=== PATIENT | female | born 1940 | race Caucasian/White ===

== ENCOUNTER → 2017-02-06 | Outpatient (CLI) | payer MEDICARE, OTHER ==
[2017-02-06 09:45] LABS: Blood Urea Nitrogen 25 mg/dL (7-17); Non-African American GFR(MDRD) 52 (>60 ml/min/1.73 sqM)
--- NOTE | 2017-02-06 12:44 | CT ---
EXAMINATION TYPE: CT ChestAbdPelvis w con DATE OF EXAM: 02/06/2017 11:08 AM COMPARISON: CT abdomen and pelvis March 08, 2016. HISTORY: Malignant Neoplasm of Endometrium per order. CT DLP: 2033 mGycm. Automated Exposure Control for Dose Reduction was Utilized. CONTRAST: CT scan of the thorax, abdomen and pelvis is performed with IV Contrast, patient injected with 80 mL of Visipaque 320. FINDINGS: LUNGS: Mild apical scarring is present bilaterally. There are persistent strandy opacities bilateral lower lung suggesting atelectasis and/or scarring. Some small nodules in the right lower lung remain present, largest measures 5 x 4 mm on axial image 37 felt grossly unchanged in size and appearance fr om prior study. No new additional nodules are evident bilaterally. No pleural effusion or pneumothora x is seen bilaterally. Tracheobronchial tree is patent. MEDIASTINUM: There are no greater than 1 cm hilar or mediastinal lymph nodes. Prominent bilateral hi lar lymph nodes are present. Prominent paratracheal and subcarinal lymph nodes are seen. No pericar dial effusion is seen. Heart size is upper limits of normal with moderate biatrial and mild to moder ate left ventricular dilatation. There is coronary artery calcification in the LAD and more prominent RCA noted. OTHER: No additional significant abnormality is seen. LIVER/GB: There are persistent 4 to 5 cm cysts in the liver along the falciform ligament, more anteri or slightly more hyperdense than simple fluid. No significant change from prior study is seen. There are additional scattered subcentimeter hypodense lesions throughout the liver that are too small to f urther characterize per presumed benign. PANCREAS: No significant abnormality is seen. SPLEEN: There is 1 cm splenule inferior to the spleen redemonstrated. ADRENALS: No significant abnormality is seen. KIDNEYS:. There are areas of old infarct scattered throughout both kidneys. There are a few simple ap pearing cysts seen bilaterally. There is 5 cm exophytic hyperdense lesion posteriorly lower pole leve l left kidney felt to reflect proteinaceous cyst. Bladder is poorly distended with lobulated irregula r margins and wall thickening. A cystitis is not excluded though this may be product of treatment for known endometrial carcinoma. Some mucosal enhancement left collecting system is present, infectious process at this level also not excluded. BOWEL: Oral contrast reaches the mid transverse colon level. There is no suspicious small or large miesha wel dilatation. Nonabsorbed pills in the sigmoid colon are present. GENITAL ORGANS: Uterus is surgically absent on current study. No suspicious residual pelvic mass or a denopathy is clearly identified. LYMPH NODES: No greater than 1cm abdominal or pelvic lymph nodes are appreciated. Prominent subcentim eter groin lymph nodes bilaterally are redemonstrated. OSSEOUS STRUCTURES: Multilevel spurring in the spine is present. There is disc space narrowing in the mid lumbar spine. OTHER: An infrarenal IVC filter is seen. Some hypodensity left external iliac vein near axial image 1 07 is noted making thrombus not excluded though IVC filter is present. New surgical vertical scar ant erior midline below umbilicus is present. IMPRESSION: 1. Interval hysterectomy. Stable small nodules right lower lobe. No new mass or adenopathy is seen to suggest residual neoplasm or neoplastic recurrence. 2. Possible cystitis with spread of infection to left ureter and collecting system, clinical correlat ion advised.
== END | disposition home or self-care (01) ==
LOC: RADCTMAIN 08:26
PROVIDERS: ATTEND Internal Medicine
DX: R91.1 Solitary pulmonary nodule (principal); C54.1 Malignant neoplasm of endometrium
CPT/HCPCS: 82565; 84520; 71260; 74177; 36415; Q9967

== ENCOUNTER → 2017-03-23 | Outpatient (CLI) | payer MEDICARE, OTHER ==
--- NOTE | 2017-03-24 11:46 | MM ---
Reason for exam: screening (asymptomatic). Last mammogram was performed 6 years and 4 months ago. History: Patient is postmenopausal, has history of other cancer at age 76, and is nulliparous. Family history of breast cancer in mother at age 49 and breast cancer in sister at age 40. Benign excisional biopsy of the right breast. Physical Findings: A clinical breast exam by your physician is recommended on an annual basis and results should be correlated with mammographic findings. MG Screening Mammo w CAD Bilateral CC and MLO view(s) were taken. Prior study comparison: November 26, 2010, bilateral digital screening mammo w/CAD. November 19, 2009, bilateral diagnostic digital mammog. The breast tissue is heterogeneously dense. This may lower the sensitivity of mammography. Benign calcifications. There is chronic nodularity bilaterally. There is no dominant lesion. No significant changes when compared with prior studies. ASSESSMENT: Benign, BI-RAD 2 RECOMMENDATION: Routine screening mammogram of both breasts in 1 year.
== END | disposition home or self-care (01) ==
LOC: RADMAMWWP 13:12
PROVIDERS: ATTEND Obstetrics & Gynecology
DX: Z12.31 Encounter for screening mammogram for malignant neoplasm of breast (principal)

== ENCOUNTER 2017-04-21 08:59 | Day surgery (SDC) | payer MEDICARE, OTHER ==
[2017-04-03 10:40] VITALS: BMI 29.4
[~2017-04-21 08:59] MED LIST: LACTATED RINGERS 1,000 ML IV SCH; LIDOCAINE 1% 20 ML VIAL (10MG/ML) FOR IV START INTRADERMA PRN
[2017-04-21 09:23] VITALS: RESP 16; TEMP 98.5
[2017-04-21 09:48] LABS: Glucose,Whole Blood 81 mg/dL (75-99)
[2017-04-21] MEDS ORDERED: PROPOFOL 10 MG/ML 20 ML VIAL IV ONE (10:27)
[2017-04-21] MEDS ORDERED: LIDOCAINE 1% INJ 10MG/ML (20 ML MDV) ONE (10:27)
--- NOTE | 2017-04-21 10:48 | P.PCN ---
Date of Procedure: 04/21/17 Preoperative Diagnosis: Postoperative Diagnosis: Procedure(s) Performed: BRIEF HISTORY: Patient is a 76-year-old pleasant white female, scheduled for an elective colonoscopy as a part of screening for colorectal neoplasia. PROCEDURE PERFORMED: Colonoscopy with snare polypectomy PREOPERATIVE DIAGNOSIS: Screening for colon cancer. IV sedation per Anesthesia. PROCEDURE: After informed consent was obtained, the patient, was brought into the endoscopy unit. IV sedation was administered by Anesthesia under continuous monitoring. Digital rectal examination was normal. Initially the Olympus CF- 160 flexible video colonoscope was then inserted in the rectum, gradually advanced into the cecum without any difficulty. Careful examination was performed as the scope was gradually being withdrawn. Ileocecal valve and the appendiceal orifice were visualized and appeared normal. Prep was excellent. Mucosa of the cecum, ascending colon, appeared normal. In the transverse colon there was a 7-8 mm polyp that was removed by snare polypectomy. The rest of the transverse colon, descending colon, sigmoid colon, and rectum appeared normal. Retroflexion was performed in the rectum and small internal hemorrhoids were seen. The patient tolerated the procedure well. IMPRESSION: 7-8 mm transverse colon polyp status post snare polypectomy. Small internal hemorrhoids. RECOMMENDATIONS: Findings of this examination were discussed with the patient as well as her family. She was advised to follow with the biopsy results. If the biopsy shows a tubular adenoma she can have a repeat colonoscopy in 5 years. Implants: Indications for Procedure: Operative Findings: Description of Procedure:
[2017-04-21 10:57] VITALS: PULSE 54
[2017-04-21 11:18] VITALS: BP 161/74
== END 2017-04-21 11:36 | disposition home or self-care (01) ==
LOC: ORWHC2ENDO 08:59
PROVIDERS: ATTEND Internal Medicine Gastroenterology
DX: Z12.11 Encounter for screening for malignant neoplasm of colon (principal); D12.3 Benign neoplasm of transverse colon; K64.8 Other hemorrhoids; I10 Essential (primary) hypertension; E11.9 Type 2 diabetes mellitus without complications; N28.9 Disorder of kidney and ureter, unspecified; K21.9 Gastro-esophageal reflux disease without esophagitis; Z79.84 Long term (current) use of oral hypoglycemic drugs; Z79.899 Other long term (current) drug therapy; Z88.6 Allergy status to analgesic agent
CPT/HCPCS: 88305; 45385; J2001; J2704

== ENCOUNTER 2019-04-22 23:43 | Inpatient (IN) | payer MEDICARE, OTHER ==
[2019-04-22] MEDS ORDERED: ONDANSETRON 4 MG/2 ML VIAL IVP STA (23:48)
--- NOTE | 2019-04-22 23:54 | ED ---
Fall HPI - General Stated Complaint: Fall Time Seen by Provider: 04/22/19 23:43 Source: patient, EMS, RN notes reviewed, old records reviewed - History of Present Illness Initial Comments: This is a 78-year-old female who is reaching for something at the [facility] home that she was in when she lost her balance and fell landing on her left hip. She complains of severe 10/10 left hip pain. She is brought in by EMS she was given 50 g of fentanyl with some improvement but she started developing nausea upon arrival. He denies any head neck or back pain a loss of function to her upper or lower extremities but severe pain with any type of movement in the left hip. MD Complaint: fall - Related Data Home Medications Medication Instructions Recorded Confirmed glipiZIDE [Glucotrol] 5 mg PO AC-BID 05/13/16 04/22/19 Acetaminophen Tab [Tylenol] 500 mg PO Q6H PRN 06/22/16 04/22/19 Losartan [Cozaar] 100 mg PO DAILY 04/03/17 04/22/19 Omeprazole [PriLOSEC] 20 mg PO AC-BRKFST 04/03/17 04/22/19 Potassium Chloride [K-Tab ER] 8 meq PO DAILY 04/03/17 04/22/19 Allopurinol [Zyloprim] 100 mg PO BID 04/22/19 04/22/19 Atenolol [Tenormin] 25 mg PO HS 04/22/19 04/22/19 Fenofibrate Nanocrystallized 145 mg PO HS 04/22/19 04/22/19 [Tricor] Furosemide [Lasix] 20 mg PO DAILY 04/22/19 04/22/19 Nystatin 100,000 Unit/gm Powd 1 applic TOPICAL DAILY PRN 04/22/19 04/22/19 [Mycostatin Powder] Promethazine/Dextromethorphan 5 - 10 ml PO Q6H PRN 04/22/19 04/22/19 [Promethazine-Dm Syrup] Sennosides-Docusate Sodium 2 tab PO HS 04/22/19 04/22/19 [Senokot-S] Allergies Allergy/AdvReac Type Severity Reaction Status Date / Time ibuprofen [From Motrin IB] Allergy Unknown Verified 04/22/19 23:51 Review of Systems ROS Statement: Those systems with pertinent positive or pertinent negative responses have been documented in the HPI. ROS Other: All systems not noted in ROS Statement are negative. Past Medical History Past Medical History: Diabetes Mellitus, GERD/Reflux, Hearing Disorder / Deafness, Hypertension, Osteoarthritis (OA), Renal Disease, Thyroid Disorder Additional Past Medical History / Comment(s): acute posthemorrhagic anemia,abnormal uterine and vaginal bleeding, Leiomyoma of uterus, tachycardia, Generalized muscle weakness, Chronic kidney disease stage 2 (mild), History of Any Multi-Drug Resistant Organisms: None Reported Past Surgical History: Appendectomy, Hysterectomy Additional Past Surgical History / Comment(s): fistula L upper arm Past Anesthesia/Blood Transfusion Reactions: No Reported Reaction Past Psychological History: No Psychological Hx Reported General Exam - General Exam Comments Initial Comments: This is a well-developed well-nourished awake alert oriented history female she does demonstrate a [place] Coma Scale of 15 Limitations: physical limitation General appearance: alert, anxious, in distress Head exam: Present: atraumatic, normocephalic, normal inspection Eye exam: Present: normal appearance, PERRL, EOMI. Absent: scleral icterus, conjunctival injection, periorbital swelling ENT exam: Present: mucous membranes moist Neck exam: Present: normal inspection. Absent: tenderness, meningismus, lymphadenopathy Respiratory exam: Present: normal lung sounds bilaterally. Absent: respiratory distress, wheezes, rales, rhonchi, stridor Cardiovascular Exam: Present: normal rhythm, bradycardia, normal heart sounds. Absent: systolic murmur, diastolic murmur, rubs, gallop, clicks GI/Abdominal exam: Present: soft, normal bowel sounds. Absent: distended, tenderness, guarding, rebound, rigid Extremities exam: Present: tenderness (Is palpation over left hip), normal capillary refill. Absent: full ROM, pedal edema, joint swelling, calf tenderness Back exam: Present: normal inspection Neurological exam: Present: alert, oriented X3, CN II-XII intact Psychiatric exam: Present: normal affect, normal mood Skin exam: Present: warm, dry, intact, normal color. Absent: rash Course Vital Signs 04/23/19 00:13 Temperature 97.9 F Pulse Rate 44 L Respiratory 18 Rate Blood Pressure 186/79 O2 Sat by Pulse 95 Oximetry - Reevaluation(s) Reevaluation #1: 04/23/19 01:38 I did discuss case with Dr. Fraire prior to the CAT scan be performed CAT scan was performed and the images were visualized by me there is evidence of a surgical neck fracture. Medical Decision Making - Medical Decision Making The patient will be admitted for evaluation treatment a fractured left hip also bradycardia be evaluated. Clinical clearance be obtained. Patient is seen by visiting physicians. Dr. Mayberry will be consulted - Lab Data Result diagrams: 04/23/19 00:01 04/23/19 00:01 Lab Results 04/23/19 04/23/19 04/23/19 Range/Units 00:01 00:01 00:01 WBC 5.7 (3.8-10.6) k/uL RBC 3.34 L (3.80-5.40) m/uL Hgb 10.5 L (11.4-16.0) gm/dL Hct 33.0 L (34.0-46.0) % MCV 98.8 (80.0-100.0) fL MCH 31.4 (25.0-35.0) pg MCHC 31.7 (31.0-37.0) g/dL RDW 14.5 (11.5-15.5) % Plt Count 263 (150-450) k/uL Neutrophils % 70 % Lymphocytes % 18 % Monocytes % 6 % Eosinophils % 2 % Basophils % 0 % Neutrophils # 4.0 (1.3-7.7) k/uL Lymphocytes # 1.0 (1.0-4.8) k/uL Monocytes # 0.4 (0-1.0) k/uL Eosinophils # 0.1 (0-0.7) k/uL Basophils # 0.0 (0-0.2) k/uL Sodium 139 (137-145) mmol/L Potassium 4.4 (3.5-5.1) mmol/L Chloride 108 H (98-107) mmol/L Carbon Dioxide 20 L (22-30) mmol/L Anion Gap 11 mmol/L BUN 30 H (7-17) mg/dL Creatinine 1.53 H (0.52-1.04) mg/dL Est GFR (CKD-EPI)AfAm 38 (>60 ml/min/1.73 sqM) Est GFR (CKD-EPI)NonAf 33 (>60 ml/min/1.73 sqM) Glucose 98 (74-99) mg/dL Calcium 10.1 (8.4-10.2) mg/dL Total Bilirubin 0.6 (0.2-1.3) mg/dL AST 38 H (14-36) U/L ALT 26 (9-52) U/L Alkaline Phosphatase 43 (38-126) U/L Creatine Kinase 43 (30-135) U/L Troponin I <0.012 (0.000-0.034) ng/mL Total Protein 7.3 (6.3-8.2) g/dL Albumin 4.2 (3.5-5.0) g/dL Lipase 364 H (23-300) U/L - EKG Data -: EKG Interpreted by Me EKG shows normal: sinus rhythm (Says bradycardia of 41. Interval 190 QRS duration 100 QT since QTC 424/349 left exodeviation nonspecific T-wave configuration) - Radiology Data Radiology results: report reviewed (I did review the imaging and report or is evidence of a surgical neck fracture.), image reviewed Disposition Clinical Impression: Fall, Closed left hip fracture, Bradycardia Disposition: ADMITTED IP TO THIS [facility] Condition: Fair Referrals: None,Stated [REFERRING] - 1-2 days
[2019-04-23 00:18] LABS: Basophils % (A) 0 %; Eosinophils # (A) 0.1 k/uL (0-0.7); Eosinophils % (A) 2 %; HGB 10.5 gm/dL (11.4-16.0); Lymphocytes % (A) 18 %; MCH 31.4 pg (25.0-35.0); MCHC 31.7 g/dL (31.0-37.0); MCV 98.8 fL (80.0-100.0); Monocytes # (A) 0.4 k/uL (0-1.0); Monocytes % (A) 6 %; Neutrophils % (A) 70 %; Platelet Count 263 k/uL (150-450); RBC 3.34 m/uL (3.80-5.40); RDW 14.5 % (11.5-15.5); WBC 5.7 k/uL (3.8-10.6)
[2019-04-23 00:28] LABS: Albumin 4.2 g/dL (3.5-5.0); Calcium 10.1 mg/dL (8.4-10.2); Potassium 4.4 mmol/L (3.5-5.1); Total Bilirubin 0.6 mg/dL (0.2-1.3); Total Protein 7.3 g/dL (6.3-8.2)
--- NOTE | 2019-04-23 00:58 | XR ---
EXAM: XR Chest, 1 View CLINICAL HISTORY: ITS.REASON XR Reason: cough TECHNIQUE: Frontal view of the chest. COMPARISON: Compared to CT of 02/06/17. FINDINGS: Lungs/pleural space: Redemonstrated elevation of the left hemidiaphragm. Mild basilar atelectasis. No consolidation or vascular congestion Heart: No cardiomegaly. Mediastinum: Calcified aorta. Bones/joints: Mild degenerative changes. IMPRESSION: No evidence of acute pulmonary disease. Redemonstrated elevation of the left hemidiaphragm.
--- NOTE | 2019-04-23 01:00 | XR ---
EXAM: XR Left Hip With Pelvis When Performed, 2 or 3 Views CLINICAL HISTORY: ITS.REASON XR Reason: Pain TECHNIQUE: Two or three views of the left hip, with pelvis when performed. COMPARISON: No relevant prior studies available. FINDINGS: Bones/joints: The left femoral head neck junction is not well assessed on any of the views. No clear acute fracture line, but if patient is nonweightbearing, would recommend CT scan to further assess. Mild osteopenia Soft tissues: Unremarkable. IMPRESSION: The left femoral head neck junction is not well assessed on any of the views. No clear acute fracture line, but if patient is nonweightbearing, would recommend CT scan to further assess.
[2019-04-23] MEDS ORDERED: SODIUM CHLORIDE 0.9% 1,000 ML IV STA (01:04)
[2019-04-23] MEDS ORDERED: SODIUM CHLORIDE 0.9% 500 ML 500 ML IV STA (01:04)
[2019-04-23] MEDS ORDERED: HYDROmorphone 1 MG/ML 1 ML SYRINGE IVP STA (01:04)
[2019-04-23] MEDS ORDERED: NALOXONE 0.4 MG/ML 1 ML VIAL IV PRN (01:12)
--- NOTE | 2019-04-23 01:58 | CT ---
EXAM: CT Left Lower Extremity Without Intravenous Contrast, Hip CLINICAL HISTORY: : Pain TECHNIQUE: Axial computed tomography images of the left hip without intravenous contrast. CTDI is 0.085, 0.242, 16.2 mGy and DLP is 591.4 mGy-cm. This CT exam was performed using one or more of the following dose reduction techniques: automated exposure control, adjustment of the mA and/or kV according to patient size, and/or use of iterative reconstruction technique. COMPARISON: No relevant prior studies available. FINDINGS: Bones/joints: Acute transcervical fracture of the left proximal femur. No hip dislocation. Soft tissues: Unremarkable. Bladder: A Ferrer catheter is present in the decompressed urinary bladder. Reproductive: The uterus is likely absent. IMPRESSION: Acute transcervical fracture of the left proximal femur.
[2019-04-23 02:11] LABS: Appearance,Urine Cloudy (Clear); Bacteria,Urine Occasional /hpf; Bilirubin,Urine Negative (Negative); Blood,Urine Trace (Negative); Color,Urine Light Yellow; Glucose,Urine (UA) Negative (Negative); Hyaline Casts,Urine 1 /lpf (0-2); Ketones,Urine Negative (Negative); Leukocyte Esterase,Urine Large (Negative); Mucus,Urine Rare /hpf; Nitrite,Urine Negative (Negative); Protein,Urine 1+ (Negative); RBC,Urine 5 /hpf (0-5); Specific Gravity,Urine 1.011 (1.001-1.035); Squamous Epithelial Cell,Urine 1 /hpf (0-4); Urobilinogen,Urine <2.0 mg/dL (<2.0); WBC,Urine 180 /hpf (0-5)
[2019-04-23] MEDS: HYDROmorphone 1 MG/ML 1 ML SYRINGE IVP PRN ×3 (03:07→10:25)
[2019-04-23] MEDS: ONDANSETRON 4 MG/2 ML VIAL IVP PRN (07:51)
[2019-04-23 09:28] LABS: Glucose,Whole Blood 134 mg/dL (75-99)
[2019-04-23] MEDS ORDERED: NYSTATIN 100,000 UNIT/GM POWD 15 GM TOPICAL PRN (09:53)
[2019-04-23] MEDS ORDERED: ACETAMINOPHEN TAB 500 MG TAB PO PRN (09:53)
[2019-04-23] MEDS: ALLOPURINOL 100 MG TAB PO SCH ×2 (10:23→21:18)
[2019-04-23] MEDS: HEPARIN SODIUM,PORCINE 5,000 UNIT/ML 1 ML VIAL SQ SCH ×2 (10:24→21:17)
[2019-04-23] MEDS: PANTOPRAZOLE 40 MG TABLET PO SCH (10:24)
[2019-04-23] MEDS: LOSARTAN 50 MG TAB PO SCH (10:26)
[2019-04-23] MEDS: amLODIPine 5 MG TAB PO SCH (10:26)
--- NOTE | 2019-04-23 11:07 | P.HPOR ---
History of Present Illness H&P Date: 04/23/19 This patient is a 78-year-old female with past medical history of hypertension and diabetes type 2 that presented to [facility] ER last night on 04/22/19 with complaints of left hip pain following a fall. Patient states she lives in a nursing home. She states she was at the nursing home last night, when she believes she lost her balance and fell directly onto the left hip. She states she experienced immediate pain in the left hip, she is unable to stand by herself or with assistance. Therefore, an ambulance was called. X-rays taken of the left hip in the ER did not reveal an obvious fracture, therefore a CT scan of the left hip was obtained. CT scan revealed an acute left transcervical femur fr acture. The patient was admitted under the care of Dr. Fraire for further evaluation and treatment. At the time of my exam, the patient states she only experiences pain in the left hip when she moves. Currently, she states her pain is well controlled. She states she did not injure additional areas of the body when she fell. Patient voices no other complaints. Vital signs stable, mild bradycardia noted. Past Medical History Past Medical History: Diabetes Mellitus, GERD/Reflux, Hearing Disorder / Deafness, Hypertension, Osteoarthritis (OA), Renal Disease, Thyroid Disorder Additional Past Medical History / Comment(s): acute posthemorrhagic anemia,abnormal uterine and vaginal bleeding, Leiomyoma of uterus, tachycardia, Generalized muscle weakness, Chronic kidney disease stage 2 (mild), History of Any Multi-Drug Resistant Organisms: None Reported Past Surgical History: Appendectomy, Hysterectomy Additional Past Surgical History / Comment(s): fistula L upper arm Past Anesthesia/Blood Transfusion Reactions: No Reported Reaction Smoking Status: Former smoker - Past Family History Mother History Unknown: Yes Father History Unknown: Yes Medications and Allergies Home Medications Medication Instructions Recorded Confirmed Type glipiZIDE [Glucotrol] 5 mg PO AC-BID 05/13/16 04/22/19 History Acetaminophen Tab [Tylenol] 500 mg PO Q6H PRN 06/22/16 04/22/19 History Losartan [Cozaar] 100 mg PO DAILY 04/03/17 04/22/19 History Omeprazole [PriLOSEC] 20 mg PO AC-BRKFST 04/03/17 04/22/19 History Potassium Chloride [K-Tab ER] 8 meq PO DAILY 04/03/17 04/22/19 History Allopurinol [Zyloprim] 100 mg PO BID 04/22/19 04/22/19 History Atenolol [Tenormin] 25 mg PO HS 04/22/19 04/22/19 History Fenofibrate Nanocrystallized 145 mg PO HS 04/22/19 04/22/19 History [Tricor] Furosemide [Lasix] 20 mg PO DAILY 04/22/19 04/22/19 History Nystatin 100,000 Unit/gm Powd 1 applic TOPICAL DAILY PRN 04/22/19 04/22/19 History [Mycostatin Powder] Promethazine/Dextromethorphan 5 - 10 ml PO Q6H PRN 04/22/19 04/22/19 History [Promethazine-Dm Syrup] Sennosides-Docusate Sodium 2 tab PO HS 04/22/19 04/22/19 History [Senokot-S] Allergies Allergy/AdvReac Type Severity Reaction Status Date / Time ibuprofen [From Motrin IB] Allergy Unknown Verified 04/23/19 10:21 Physical Examination On examination, the patient is lying in bed in no apparent distress. She is able to easily answer questions and follow commands. Her head appears atraumatic and normocephalic. Her breathing appears nonlabored. On inspection of the left lower extremity, extremity is abducted and externally rotated. There are no open wounds or lacerations of the skin. There is no ecchymosis, erythema, skin discoloration. Sensation is intact to light touch of the left lower extremity. Dorsalis pedis pulse palpable, brisk capillary refill of all toes. Patient has good range of motion of the ankle and toes. Calf is soft and nontender to palpation. Results Left hip CT scan 04/23/19:Acute transcervical femur fracture. - Labs Labs: Abnormal Lab Results - Last 24 Hours (Table) 04/23/19 04/23/19 04/23/19 Range/Units 00:01 00:01 01:30 RBC 3.34 L (3.80-5.40) m/uL Hgb 10.5 L (11.4-16.0) gm/dL Hct 33.0 L (34.0-46.0) % Chloride 108 H (98-107) mmol/L Carbon Dioxide 20 L (22-30) mmol/L BUN 30 H (7-17) mg/dL Creatinine 1.53 H (0.52-1.04) mg/dL AST 38 H (14-36) U/L Lipase 364 H (23-300) U/L Urine Appearance Cloudy H (Clear) Urine Protein 1+ H (Negative) Urine Blood Trace H (Negative) Ur Leukocyte Esterase Large H (Negative) Urine WBC 180 H (0-5) /hpf Urine WBC Clumps Rare H (None) /hpf Urine Bacteria Occasional H (None) /hpf Urine Mucus Rare H (None) /hpf H & H 04/23/19 Range/Units 00:01 Hgb 10.5 L (11.4-16.0) gm/dL Hct 33.0 L (34.0-46.0) % Result Diagrams: 04/23/19 00:01 04/23/19 00:01 Assessment and Plan Assessment: Acute transcervical femur fracture, left. Plan: - The clinical and x-ray findings were discussed with the patient. We will plan for a left hip hemiarthroplasty with Dr. Fraire this afternoon, pending medical clearance and consent. - Strict nonweightbearing on left lower extremity. - Nothing by mouth diet. - Continue pain management. - Internal medicine consulted for medical clearance. Patient discussed with Dr. Fraire.
[2019-04-23 12:09] LABS: Glucose,Whole Blood 166 mg/dL (75-99)
[2019-04-23] MEDS: INSULIN ASPART (NovoLOG) 100 UNIT/ML VIAL SQ SCH ×3 (12:53→21:16)
--- NOTE | 2019-04-23 13:37 | P.CONS ---
History of Present Illness - Reason for Consult Consult date: 04/23/19 Medical management Requesting physician: Chaka Fraire - Chief Complaint Left hip pain - History of Present Illness Consultation: This is a pleasant 78 year patient, as chronic stable medical conditions include diabetes, GERD, hard of hearing, hypertension, or strength redness, chronic kidney disease, hypothyroid. Patient has chronic kidney disease stage II. Lacy ent was leaning over and fell to the left side. Developed pain in the left hip. Difficult to get up. Computed tomography scan did confirm a left femur fracture. Denies any chest pain or shortness of breath. Patient noted to be in sinus bradycardia here with heart rate in the 40s. Patient does take Tenormin. That has been held. Blood pressures been running high. Denies any cardiac history. Review of systems: GEN.: None EYES: None HEENT: Decreased hearing NECK: None RESPIRATORY: None CARDIOVASCULAR: None GASTROINTESTINAL: None GENITOURINARY: None MUSCULOSKELETAL: Pain in the joints patient left LYMPHATICS: None HEMATOLOGICAL: None PSYCHIATRY: None NEUROLOGICAL: None Social history: Does smoke in the past. No alcohol. Resident at [facility] home. Family history: Reviewed, noncontributory to presentation Physical examination: VITAL SIGNS: 97.9, 44, 18, 186/79, 95% room air GENERAL: Average built, sitting up, comfortable. EYES: Pupils equal. Conjunctiva normal. HEENT: External appearance of nose and ears normal, oral cavity grossly normal. NECK: JVD not raised; masses not palpable. HEART: First and second heart sounds are normal; no edema. LUNGS: Respiratory rate normal; clear to auscultation. ABDOMEN: Soft, nontender, liver spleen not palpable, no masses palpable. PSYCH: Answering simple questionsl. NEUROLOGICAL: Cranial nerves grossly intact; no facial asymmetry, power and sensation grossly intact. LYMPHATICS: No lymph nodes palpable in the axilla and neck MUSCULAR skeletal: Evidence of OA in the hands and knees. Limited range of motion of left hip Investigations: White count 5.7 him globin 10.5 potassium 4.4 bun 30 creatinine 1.53 Troponin less than 0.012 EKG tracing personally reviewed by me shows sinus bradycardia CT left hip shows acute transcervical fracture of the left proximal femur Chest x-ray film personally reviewed by me-borderline cardiomegaly, elevation left hemidiaphragm Assessment: -Left femur neck fracture secondary to fall -Diabetes mellitus type 2 on oral hypoglycemic -GERD -Essential hypertension, uncontrolled patient did not have received her antihypertensive -Primary osteoarthritis -Chronic kidney disease stage III likely from nephrosclerosis -Metabolic acidosis from chronic kidney disease -Sinus bradycardia likely from being on beta charlette -Normocytic anemia likely secondary to chronic kidney disease Plan: Patient beta blockers been held. Will add amlodipine. Patient is put on telemetry. Will get a cardiology consultation. Possibly wait for 24 hours to make sure patient heart rate does not drop further and the effect of beta charlette wears off. Also blood pressures running high. Otherwise patient med ically stable to proceed for surgery with moderate risk given her comorbidities. No family members currently present. Thank Dr. Fraire Past Medical History Past Medical History: Diabetes Mellitus, GERD/Reflux, Hearing Disorder / Deafness, Hypertension, Osteoarthritis (OA), Renal Disease, Thyroid Disorder Additional Past Medical History / Comment(s): acute posthemorrhagic anemia,abnormal uterine and vaginal bleeding, Leiomyoma of uterus, tachycardia, Generalized muscle weakness, Chronic kidney disease stage 2 (mild), History of Any Multi-Drug Resistant Organisms: None Reported Past Surgical History: Appendectomy, Hysterectomy Additional Past Surgical History / Comment(s): fistula L upper arm Past Anesthesia/Blood Transfusion Reactions: No Reported Reaction Smoking Status: Former smoker - Past Family History Mother History Unknown: Yes Father History Unknown: Yes Medications and Allergies Home Medications Medication Instructions Recorded Confirmed Type glipiZIDE [Glucotrol] 5 mg PO AC-BID 05/13/16 04/22/19 History Acetaminophen Tab [Tylenol] 500 mg PO Q6H PRN 06/22/16 04/22/19 History Losartan [Cozaar] 100 mg PO DAILY 04/03/17 04/22/19 History Omeprazole [PriLOSEC] 20 mg PO AC-BRKFST 04/03/17 04/22/19 History Potassium Chloride [K-Tab ER] 8 meq PO DAILY 04/03/17 04/22/19 History Allopurinol [Zyloprim] 100 mg PO BID 04/22/19 04/22/19 History Atenolol [Tenormin] 25 mg PO HS 04/22/19 04/22/19 History Fenofibrate Nanocrystallized 145 mg PO HS 04/22/19 04/22/19 History [Tricor] Furosemide [Lasix] 20 mg PO DAILY 04/22/19 04/22/19 History Nystatin 100,000 Unit/gm Powd 1 applic TOPICAL DAILY PRN 04/22/19 04/22/19 History [Mycostatin Powder] Promethazine/Dextromethorphan 5 - 10 ml PO Q6H PRN 04/22/19 04/22/19 History [Promethazine-Dm Syrup] Sennosides-Docusate Sodium 2 tab PO HS 04/22/19 04/22/19 History [Senokot-S] Allergies Allergy/AdvReac Type Severity Reaction Status Date / Time ibuprofen [From Motrin IB] Allergy Unknown Verified 04/23/19 10:21 Physical Exam Vitals: Vital Signs Temp Pulse Pulse Resp BP BP Pulse Ox 04/23/19 08:00 97.9 F 46 L 16 180/72 97 04/23/19 07:29 46 L 16 170/79 97 04/23/19 05:00 43 L 18 125/58 95 04/23/19 04:00 44 L 18 132/61 96 04/23/19 01:39 44 L 16 178/82 95 04/23/19 00:13 97.9 F 44 L 18 186/79 95 Intake and Output 04/22/19 04/23/19 04/23/19 22:59 06:59 14:59 Other: Voiding Method Indwelling Catheter Weight 86.183 kg Results CBC & Chem 7: 04/23/19 00:01 04/23/19 00:01 Labs: Abnormal Lab Results - Last 24 Hours (Table) 04/23/19 04/23/19 04/23/19 Range/Units 00:01 00:01 01:30 RBC 3.34 L (3.80-5.40) m/uL Hgb 10.5 L (11.4-16.0) gm/dL Hct 33.0 L (34.0-46.0) % Chloride 108 H (98-107) mmol/L Carbon Dioxide 20 L (22-30) mmol/L BUN 30 H (7-17) mg/dL Creatinine 1.53 H (0.52-1.04) mg/dL POC Glucose (mg/dL) (75-99) mg/dL AST 38 H (14-36) U/L Lipase 364 H (23-300) U/L Urine Appearance Cloudy H (Clear) Urine Protein 1+ H (Negative) Urine Blood Trace H (Negative) Ur Leukocyte Esterase Large H (Negative) Urine WBC 180 H (0-5) /hpf Urine WBC Clumps Rare H (None) /hpf Urine Bacteria Occasional H (None) /hpf Urine Mucus Rare H (None) /hpf 04/23/19 04/23/19 Range/Units 09:26 11:57 RBC (3.80-5.40) m/uL Hgb (11.4-16.0) gm/dL Hct (34.0-46.0) % Chloride (98-107) mmol/L Carbon Dioxide (22-30) mmol/L BUN (7-17) mg/dL Creatinine (0.52-1.04) mg/dL POC Glucose (mg/dL) 134 H 166 H (75-99) mg/dL AST (14-36) U/L Lipase (23-300) U/L Urine Appearance (Clear) Urine Protein (Negative) Urine Blood (Negative) Ur Leukocyte Esterase (Negative) Urine WBC (0-5) /hpf Urine WBC Clumps (None) /hpf Urine Bacteria (None) /hpf Urine Mucus (None) /hpf
[2019-04-23 14:41] LABS: Magnesium 2.2 mg/dL (1.6-2.3)
--- NOTE | 2019-04-23 14:56 | P.CRDCN ---
History of Present Illness History of present illness: This is a pleasant 78 showed female past medical history significant for hypertension, sick sinus syndrome, dyslipidemia, diabetes mellitus and chronic kidney disease. She follows in the office with Dr. Malave. We have been asked to see her in consultation secondary to bradycardia. She initially presented to the hospital last evening after suffering a fall at home and was found to have an acute transcervical left femur fracture. She has been seen by orthopedic surgery and plans for surgical intervention with a hemiarthroplasty this afternoon. She has seen and examined resting comfortably in bed in no acute distress. Telemetry tracings reveal sinus bradycardia. Heart rate goes as low as 37. At the time of my exam heart rate is in the mid 50s. She denies chest pain, shortness of breath, dizziness or palpitations. 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 She denies having any dizziness or lightheaded associated with her fall. She states she does fall frequently from time to time. EKG on admission reveals sinus bradycardia with a heart rate of 47 with nonspecific T-wave flattening noted. Repeat EKG this afternoon reveals ongoing sinus bradycardia heart rate of 37 with left axis deviation. Chest x-ray is negative for an acute cardiopulmonary process. Laboratory data reviewed, WBC 5.7, hemoglobin 10.5, platelets 263, sodium 139, potassium 4.4, creatinine 1.53 with a GFR of 33, magnesium 2.2, cardiac enzymes negative 1, lipase 364. Current cardiac medications include atenolol 25 mg at bedtime, Lasix 20 mg daily, losartan 100 mg daily, potassium supplementation. Most recent echocardiogram obtained in 2017 reveals preserved LV systolic function with ejection fraction 5% with concentric LVH. At the time of my exam: CONSTITUTIONAL: Denies fever. Denies chills. EYES: Denies blurred vision. Denies vision changes. Denies eye pain. EARS, NOSE, MOUTH & THROAT: Denies headache. Denies sore throat. Denies ear pain. CARDIOVASCULAR: Denies chest pain. Denies shortness of breath. Denies orthopnea. Denies PND. Denies palpitations. RESPIRATORY: Denies cough. GASTROINTESTINAL: Denies abdominal pain. Denies diarrhea. Denies constipation. Denies nausea. Denies vomiting. MUSCULOSKELETAL: Complains of left hip discomfort.. INTEGUMENTARY: Denies pruitis. Denies rash. NEUROLOGIC: Denies numbness. Denies tingling. Denies weakness. PSYCHIATRIC: Denies anxiety. Denies depression. ENDOCRINE: Denies fatigue. Denies weight change. Denies polydipsia. Denies polyurina. GENITOURINARY: Denies burning, hematuria or urgency with micturation. HEMATOLOGIC: Denies history of anemia. Denies bleeding. Blood pressure 180/72 heart rate 46 afebrile maintaining oxygen saturation on nasal cannula GENERAL: This is a 78-year-old female in no apparent distress at the time of my examination. HEENT: Head is atraumatic, normocephalic. Pupils are equal, round. Sclerae anicteric. Conjunctivae are clear. Mucous membranes of the mouth are moist. Neck is supple. There is no jugular venous distention. No carotid bruit is heard. LUNGS: Clear to auscultation no wheezes, rales or rhonchi. No chest wall t enderness is noted on palpation or with deep breathing. HEART: Regular rate and rhythm without murmurs, rubs or gallops. S1 and S2 heard. ABDOMEN: Soft, nontender. Bowel sounds are heard. No organomegaly noted. EXTREMITIES: No evidence of peripheral edema and no calf tenderness noted. VASCULAR: Radial and dorsalis pedis pulses palpated, no evidence of clubbing. NEUROLOGIC: Patient is awake, alert and oriented x3. ASSESSMENT Acute left femur fracture Sinus bradycardia, asymptomatic Hypertension Dyslipidemia Diabetes mellitus Chronic kidney disease PLAN She has a long standing history of asymptomatic bradycardia with intermittent episodes of tachycardia. No indication for pacemaker at this time. Discontinue all beta blockers. Last dose of atenolol was 04/22 prior to arrival. Repeat echocardiogram and Doppler study to assess cardiac structure and function. Initiate on theophylline 200 mg daily to hopefully increase the heart rate. She is a moderate to high risk candidate to undergo surgery secondary to multiple comorbid conditions. We recommend cautious fluids administration and good blood pressure control. We will continue to follow and make recommendations accordingly. Thank you kindly for this consultation. Nurse Practitioner note has been reviewed, I agree with a documented findings and plan of care. Patient was seen and examined. Past Medical History Past Medical History: Diabetes Mellitus, GERD/Reflux, Hearing Disorder / Deafness, Hypertension, Osteoarthritis (OA), Renal Disease, Thyroid Disorder Additional Past Medical History / Comment(s): acute posthemorrhagic anemia,abnormal uterine and vaginal bleeding, Leiomyoma of uterus, tachycardia, Generalized muscle weakness, Chronic kidney disease stage 2 (mild), History of Any Multi-Drug Resistant Organisms: None Reported Past Surgical History: Appendectomy, Hysterectomy Additional Past Surgical History / Comment(s): fistula L upper arm Past Anesthesia/Blood Transfusion Reactions: No Reported Reaction Smoking Status: Former smoker - Past Family History Mother History Unknown: Yes Father History Unknown: Yes Medications and Allergies Home Medications Medication Instructions Recorded Confirmed Type glipiZIDE [Glucotrol] 5 mg PO AC-BID 05/13/16 04/22/19 History Acetaminophen Tab [Tylenol] 500 mg PO Q6H PRN 06/22/16 04/22/19 History Losartan [Cozaar] 100 mg PO DAILY 04/03/17 04/22/19 History Omeprazole [PriLOSEC] 20 mg PO AC-BRKFST 04/03/17 04/22/19 History Potassium Chloride [K-Tab ER] 8 meq PO DAILY 04/03/17 04/22/19 History Allopurinol [Zyloprim] 100 mg PO BID 04/22/19 04/22/19 History Atenolol [Tenormin] 25 mg PO HS 04/22/19 04/22/19 History Fenofibrate Nanocrystallized 145 mg PO HS 04/22/19 04/22/19 History [Tricor] Furosemide [Lasix] 20 mg PO DAILY 04/22/19 04/22/19 History Nystatin 100,000 Unit/gm Powd 1 applic TOPICAL DAILY PRN 04/22/19 04/22/19 History [Mycostatin Powder] Promethazine/Dextromethorphan 5 - 10 ml PO Q6H PRN 04/22/19 04/22/19 History [Promethazine-Dm Syrup] Sennosides-Docusate Sodium 2 tab PO HS 04/22/19 04/22/19 History [Senokot-S] Allergies Allergy/AdvReac Type Severity Reaction Status Date / Time ibuprofen [From Motrin IB] Allergy Unknown Verified 04/23/19 10:21 Physical Exam Vitals: Vital Signs Temp Pulse Pulse Resp BP BP Pulse Ox 04/23/19 08:00 97.9 F 46 L 16 180/72 97 04/23/19 07:29 46 L 16 170/79 97 04/23/19 05:00 43 L 18 125/58 95 04/23/19 04:00 44 L 18 132/61 96 04/23/19 01:39 44 L 16 178/82 95 04/23/19 00:13 97.9 F 44 L 18 186/79 95 Intake and Output 04/22/19 04/23/19 04/23/19 22:59 06:59 14:59 Other: Voiding Method Indwelling Catheter Weight 86.183 kg Results 04/23/19 00:01 04/23/19 00:01 Cardiac Enzymes 04/23/19 04/23/19 Range/Units 00:01 00:01 AST 38 H (14-36) U/L Troponin I <0.012 (0.000-0.034) ng/mL CBC 04/23/19 Range/Units 00:01 WBC 5.7 (3.8-10.6) k/uL RBC 3.34 L (3.80-5.40) m/uL Hgb 10.5 L (11.4-16.0) gm/dL Hct 33.0 L (34.0-46.0) % Plt Count 263 (150-450) k/uL Comprehensive Metabolic Panel 04/23/19 Range/Units 00:01 Sodium 139 (137-145) mmol/L Potassium 4.4 (3.5-5.1) mmol/L Chloride 108 H (98-107) mmol/L Carbon Dioxide 20 L (22-30) mmol/L BUN 30 H (7-17) mg/dL Creatinine 1.53 H (0.52-1.04) mg/dL Glucose 98 (74-99) mg/dL Calcium 10.1 (8.4-10.2) mg/dL AST 38 H (14-36) U/L ALT 26 (9-52) U/L Alkaline Phosphatase 43 (38-126) U/L Total Protein 7.3 (6.3-8.2) g/dL Albumin 4.2 (3.5-5.0) g/dL Current Medications Generic Name Dose Route Start Last Admin Trade Name Freq PRN Reason Stop Dose Admin Acetaminophen 500 mg 04/23/19 09:53 Tylenol Tab PO Q6H PRN MILD Pain Allopurinol 100 mg 04/23/19 10:00 04/23/19 10:23 Zyloprim PO 100 mg BID GINA Administration Amlodipine Besylate 5 mg 04/23/19 10:00 04/23/19 10:26 Norvasc PO 5 mg DAILY GINA Administration Fenofibrate 160 mg 04/23/19 21:00 Lofibra PO HS GINA Heparin Sodium (Porcine) 5,000 unit 04/23/19 09:00 04/23/19 10:24 Heparin SQ Not Given Q12HR GINA Hydromorphone HCl 1 mg 04/23/19 01:12 04/23/19 10:25 Dilaudid IVP 1 mg Q3HR PRN Administration Severe Pain Insulin Aspart 0 unit 04/23/19 12:30 04/23/19 12:53 Novolog SQ Not Given ACHS [facility] Protocol Losartan Potassium 100 mg 04/23/19 10:00 04/23/19 10:26 Cozaar PO 100 mg DAILY GINA Administration Naloxone HCl 0.2 mg 04/23/19 01:12 Narcan IV Q2M PRN Opioid Reversal Nystatin 1 applic 04/23/19 09:53 Mycostatin Powder TOPICAL DAILY PRN UNDER BREAST Ondansetron HCl 4 mg 04/23/19 01:12 04/23/19 07:51 Zofran IVP 4 mg Q8HR PRN Administration Nausea And Vomiting Pantoprazole Sodium 40 mg 04/23/19 10:00 04/23/19 10:24 Protonix PO 40 mg AC-BRKFST GINA Administration Senna/Docusate Sodium 2 each 04/23/19 21:00 Senokot-S PO HS GINA Theophylline 200 mg 04/23/19 14:30 Marcos-24 PO DAILY GINA Intake and Output 04/22/19 04/23/19 04/23/19 22:59 06:59 14:59 Other: Voiding Method Indwelling Catheter Weight 86.183 kg 04/23/19 00:01 04/23/19 00:01
[2019-04-23] MEDS: THEOPHYLLINE 24 HOUR 200 MG CAP.ER.24H PO SCH (15:56)
[2019-04-23 17:16] LABS: Glucose,Whole Blood 122 mg/dL (75-99)
--- NOTE | 2019-04-23 18:24 | ECHOF ---
Referral Reason:rosmery MEASUREMENTS -------- HEIGHT: 172.7 cm WEIGHT: 86.2 kg BP: 180/72 RVIDd: 3.6 cm (< 3.3) IVSd: 0.9 cm (0.6 - 1.1) LVIDd: 4.9 cm (3.9 - 5.3) LVPWd: 1.3 cm (0.6 - 1.1) IVSs: 1.7 cm LVIDs: 2.6 cm LVPWs: 1.9 cm LAESV Index (A-L): 33.89 ml/m Ao Diam: 2.0 cm (2.0 - 3.7) AV Cusp: 1.6 cm (1.5 - 2.6) LA Diam: 4.4 cm (2.7 - 3.8) EPSS: 0.9 cm MV E Jared: 0.71 m/s MV DecT: 295 ms MV A Jared: 0.52 m/s MV E/A Ratio: 1.35 RAP: 5.00 mmHg RVSP: 32.27 mmHg MV EF SLOPE: 112.65 mm/s (70 - 150) MV EXCURSION: 1.85 cm (> 18.000) FINDINGS -------- Resting bradycardia (HR<60bpm). This was a technically difficult study with suboptimal views. The left ventricular size is normal. There is mild concentric left ventricular hypertrophy. Overa ll left ventricular systolic function is normal with, an EF between 55 - 60 %. The diastolic fillin g pattern is normal for the age of the patient. The right ventricle is mildly enlarged. Left atrium is mildly dilated by volume. The right atrial size is normal. Lumason used Interatrial and interventricular septum intact. The aortic valve is trileaflet and appears structurally normal. There is no evidence of aortic regu rgitation. There is no evidence of aortic stenosis. Mild mitral regurgitation is present. Mild tricuspid regurgitation present. There is no evidence of pulmonary hypertension. The right v entricular systolic pressure, as measured by Doppler, is 32.27mmHg. There is no pulmonic regurgitation present. The aortic root size is normal. The inferior vena cava was not well visualized. There is a trivial pericardial effusion present. CONCLUSIONS -------- 1. Resting bradycardia (HR<60bpm). 2. This was a technically difficult study with suboptimal views. 3. The left ventricular size is normal. 4. There is mild concentric left ventricular hypertrophy. 5. Overall left ventricular systolic function is normal with, an EF between 55 - 60 %. 6. The diastolic filling pattern is normal for the age of the patient. 7. The right ventricle is mildly enlarged. 8. Left atrium is mildly dilated by volume. 9. The right atrial size is normal. 10. Lumason used 11. Interatrial and interventricular septum intact. 12. The aortic valve is trileaflet and appears structurally normal. 13. There is no evidence of aortic regurgitation. 14. There is no evidence of aortic stenosis. 15. Mild mitral regurgitation is present. 16. Mild tricuspid regurgitation present. 17. There is no evidence of pulmonary hypertension. 18. The right ventricular systolic pressure, as measured by Doppler, is 32.27mmHg. 19. There is no pulmonic regurgitation present. 20. The aortic root size is normal. 21. The inferior vena cava was not well visualized. 22. There is a trivial pericardial effusion present. CATTYMAN: Opal Shin RDCS
[2019-04-23 21:17] LABS: Glucose,Whole Blood 159 mg/dL (75-99)
[2019-04-23] MEDS: FENOFIBRATE 160 MG TAB PO SCH (21:18)
[2019-04-23] MEDS: SENNOSIDES-DOCUSATE SODIUM 1 EACH TAB PO SCH (21:18)
[2019-04-23] MEDS: HYDROcodone/APAP 7.5-325MG 1 EACH TAB PO PRN (23:56)
[2019-04-24] MEDS: PANTOPRAZOLE 40 MG TABLET PO SCH (06:57)
[2019-04-24] MEDS: HYDROcodone/APAP 7.5-325MG 1 EACH TAB PO PRN ×2 (06:57→14:38)
[2019-04-24 07:09] LABS: Glucose,Whole Blood 99 mg/dL (75-99)
[2019-04-24] MEDS: INSULIN ASPART (NovoLOG) 100 UNIT/ML VIAL SQ SCH ×4 (07:30→20:29)
[2019-04-24] MEDS: ALLOPURINOL 100 MG TAB PO SCH ×2 (08:30→20:24)
[2019-04-24] MEDS: LOSARTAN 50 MG TAB PO SCH (08:30)
[2019-04-24] MEDS: amLODIPine 5 MG TAB PO SCH (08:30)
[2019-04-24] MEDS: THEOPHYLLINE 24 HOUR 200 MG CAP.ER.24H PO SCH (08:30)
[2019-04-24] MEDS: HEPARIN SODIUM,PORCINE 5,000 UNIT/ML 1 ML VIAL SQ SCH ×2 (08:30→20:22)
[2019-04-24] MEDS: ONDANSETRON 4 MG/2 ML VIAL IVP PRN (08:36)
--- NOTE | 2019-04-24 10:31 | P.PN ---
Subjective Progress Note Date: 04/24/19 This patient is a 78-year-old female with past medical history of hypertension and diabetes type 2 that presented to [facility] ER last night on 04/22/19 with complaints of left hip pain following a fall. Patient states she lives in a alf. She states she was at the alf last night, when she believes she lost her balance and fell directly onto the left hip. She states she experienced immediate pain in the left hip, she is unable to stand by herself or with assistance. Therefore, an ambulance was called. X-rays taken of the left hip in the ER did not reveal an obvious fracture, therefore a CT scan of the left hip was obtained. CT scan revealed an acute left transcervical femur fracture. The patient was admitted under the care of Dr. Fraire for further evaluation and treatment. At the time of my exam, the patient states she only experiences pain in the left hip when she moves. Currently, she states her pain is well controlled. She states she did not injure additional areas of the body when she fell. 04/24/19: Patient states her pain is currently well-controlled. She states she experiences left hip pain only when she moves it. She states otherwise she feels well, she denies chest pain, shortness of breath, nausea, vomiting, numbness or tingling of the left lower extremity. She denies any new complaints today. Vital signs stable, bradycardia noted. Objective - Vital Signs Vital signs: Vital Signs Temp 98.6 F 04/24/19 07:00 Pulse 54 L 04/24/19 07:00 Resp 16 04/24/19 07:00 BP 182/71 04/24/19 07:00 Pulse Ox 100 04/24/19 07:00 Intake & Output 04/23/19 04/24/19 04/24/19 18:59 06:59 18:59 Output Total 1000 Balance -1000 Output: Urine 1000 Other: Voiding Method Indwelling Catheter Indwelling Catheter Indwelling Catheter - Exam On examination, the patient is lying in bed in no apparent distress. She is ab le to easily answer questions and follow commands. On inspection of the left lower extremity, extremity is abducted and externally rotated. There are no open wounds or lacerations of the skin. There is no ecchymosis, erythema, skin discoloration. Sensation is intact to light touch of the left lower extremity. The left lower extremity is warm and well-perfused. Dorsalis pedis pulse palpable, brisk capillary refill of all toes. Patient has good range of motion of the left ankle and toes. Calves are soft and nontender to palpation bilaterally. - Labs CBC & Chem 7: 04/23/19 00:01 04/23/19 00:01 Labs: Abnormal Lab Results - Last 24 Hours (Table) 04/23/19 04/23/19 04/23/19 Range/Units 11:57 17:02 21:05 POC Glucose (mg/dL) 166 H 122 H 159 H (75-99) mg/dL Assessment and Plan Assessment: Acute transcervical femur fracture, left. Plan: - The clinical and x-ray findings were discussed with the patient. We will plan for a left hip hemiarthroplasty with Dr. Fraire tomorrow morning, pending medical clearance and consent. - Strict nonweightbearing on left lower extremity. - Nothing by mouth diet at midnight. - Continue pain management. - Internal medicine consulted for medical clearance. Patient discussed with Dr. Fraire.
[2019-04-24 11:36] LABS: Glucose,Whole Blood 251 mg/dL (75-99)
--- NOTE | 2019-04-24 12:43 | P.PN ---
Subjective This is a pleasant 78 showed female past medical history significant for hypertension, sick sinus syndrome, dyslipidemia, diabetes mellitus and chronic kidney disease. She follows in the office with Dr. Malave. We have been asked to see her in consultation secondary to bradycardia. She initially presented to the hospital last evening after suffering a fall at home and was found to have an acute transcervical left femur fracture. She has been seen by orthopedic surgery and plans for surgical intervention with a hemiarthroplasty this afternoon. She has seen and examined resting comfortably in bed in no acute distress. Telemetry tracings reveal sinus bradycardia. Heart rate goes as low as 37. At the time of my exam heart rate is in the mid 50s. She denies chest pain, shortness of breath, dizziness or palpitations. 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 She denies having any dizziness or lightheaded associated with her fall. She states she does fall frequently from time to time. EKG on admission reveals sinus bradycardia with a heart rate of 47 with nons pecific T-wave flattening noted. Repeat EKG this afternoon reveals ongoing sinus bradycardia heart rate of 37 with left axis deviation. Chest x-ray is negative for an acute cardiopulmonary process. Laboratory data reviewed, WBC 5.7, hemoglobin 10.5, platelets 263, sodium 139, potassium 4.4, creatinine 1.53 with a GFR of 33, magnesium 2.2, cardiac enzymes negative 1, lipase 364. Current cardiac medications include atenolol 25 mg at bedtime, Lasix 20 mg daily, losartan 100 mg daily, potassium supplementation. Most recent echocardiogram obtained in 2017 reveals preserved LV systolic function with ejection fraction 5% with concentric LVH. 04/24/2019 Patient is seen and examined resting comfortably in bed eating lunch. She denies symptoms of chest discomfort, shortness of breath, dizziness or palpitations. Blood pressure 182/71 heart rate 54 afebrile maintaining oxygen saturation on nasal cannula. Amlodipine has been admitted for blood pressure control. Surgery scheduled for tomorrow. Echocardiogram obtained reveals preserved LV systolic function with ejection fraction 55-60%. GENERAL: This is a 78-year-old female in no apparent distress at the time of my examination. HEENT: Head is atraumatic, normocephalic. Pupils are equal, round. Sclerae anicteric. Conjunctivae are clear. Mucous membranes of the mouth are moist. Neck is supple. There is no jugular venous distention. No carotid bruit is heard. LUNGS: Clear to auscultation no wheezes, rales or rhonchi. No chest wall tenderness is noted on palpation or with deep breathing. HEART: Regular rate and rhythm with short systolic ejection murmur at the base, no rubs or gallops. S1 and S2 heard. EXTREMITIES: No evidence of peripheral edema and no calf tenderness noted. ASSESSMENT Acute left femur fracture Sinus bradycardia, asymptomatic Hypertension Dyslipidemia Diabetes mellitus Chronic kidney disease PLAN She has a long standing history of asymptomatic bradycardia with intermittent episodes of tachycardia. No indication for pacemaker at this time. Has improved with discontinuation of atenolol. Agree with adding norvasc for blood pressure control. She is a moderate to high risk candidate to undergo surgery secondary to multiple comorbid conditions as well as advanced age. However there is no absolu te contraindications. We recommend cautious fluids administration and good blood pressure control. Nurse Practitioner note has been reviewed, I agree with a documented findings and plan of care. Patient was seen and examined. Objective - Vital Signs Vital signs: Vital Signs Temp 98.6 F 04/24/19 07:00 Pulse 54 L 04/24/19 07:00 Resp 16 04/24/19 07:00 BP 182/71 04/24/19 07:00 Pulse Ox 100 04/24/19 07:00 Intake & Output 04/23/19 04/24/19 04/24/19 18:59 06:59 18:59 Output Total 1000 Balance -1000 Output: Urine 1000 Other: Voiding Method Indwelling Catheter Indwelling Catheter Indwelling Catheter - Labs CBC & Chem 7: 04/23/19 00:01 04/23/19 00:01 Labs: Abnormal Lab Results - Last 24 Hours (Table) 04/23/19 04/23/19 04/24/19 Range/Units 17:02 21:05 11:24 POC Glucose (mg/dL) 122 H 159 H 251 H (75-99) mg/dL
[2019-04-24 17:29] LABS: Glucose,Whole Blood 153 mg/dL (75-99)
[2019-04-24] MEDS ORDERED: amLODIPine 5 MG TAB PO STA (17:48)
--- NOTE | 2019-04-24 17:48 | P.PN ---
Progress Note - Text Progress Note Date: 04/24/19 - Chief Complaint Left hip pain Interval history: This is a pleasant 78 year patient, as chronic stable medical conditions include diabetes, GERD, hard of hearing, hypertension, or strength redness, chronic kidney disease, hypothyroid. Patient has chronic kidney disease stage II. Patient was leaning over and fell to the left side. Developed pain in the left hip. Difficult to get up. Computed tomography scan did confirm a left femur fracture. Denies any chest pain or shortness of breath. Patient noted to be in sinus bradycardia here with heart rate in the 40s. Patient does take Tenormin. That has been held. Blood pressures been running high. Denies any cardiac history. Today-hearted is doing better after atenolol was discontinued. Blood pressure better controlled. Awaiting to go down for surgery. Active Medications Acetaminophen (Tylenol Tab) 500 mg PO Q6H PRN PRN Reason: MILD Pain Last Admin: 04/23/19 21:17 Dose: 500 mg Documented by: Hydrocodone Bitart/Acetaminophen ([place] 7.5-325) 2 each PO Q6H PRN PRN Reason: Severe Pain Last Admin: 04/24/19 14:38 Dose: 2 each Documented by: Hydrocodone Bitart/Acetaminophen ([place] 7.5-325) 1 each PO Q4H PRN PRN Reason: Moderate Pain Last Admin: 04/23/19 23:56 Dose: 1 each Documented by: Allopurinol (Zyloprim) 100 mg PO BID [facility] Last Admin: 04/24/19 08:30 Dose: 100 mg Documented by: Amlodipine Besylate (Norvasc) 5 mg PO DAILY [facility] Last Admin: 04/24/19 08:30 Dose: 5 mg Documented by: Fenofibrate (Lofibra) 160 mg PO HS [facility] Last Admin: 04/23/19 21:18 Dose: 160 mg Documented by: Heparin Sodium (Porcine) (Heparin) 5,000 unit SQ Q12HR [facility] Last Admin: 04/24/19 08:30 Dose: 5,000 unit Documented by: Hydromorphone HCl (Dilaudid) 1 mg IVP Q3HR PRN PRN Reason: Severe Pain Last Admin: 04/23/19 10:25 Dose: 1 mg Documented by: Insulin Aspart (Novolog) [address] [facility]; Protocol Last Admin: 04/24/19 17:40 Dose: 1 unit Documented by: Losartan Potassium (Cozaar) 100 mg PO DAILY [facility] Last Admin: 04/24/19 08:30 Dose: 100 mg Documented by: Naloxone HCl (Narcan) 0.2 mg IV Q2M PRN PRN Reason: Opioid Reversal Nystatin (Mycostatin Powder) 1 applic TOPICAL DAILY PRN PRN Reason: UNDER BREAST Ondansetron HCl (Zofran) 4 mg IVP Q8HR PRN PRN Reason: Nausea And Vomiting Last Admin: 04/24/19 08:36 Dose: 4 mg Documented by: Pantoprazole Sodium (Protonix) 40 mg PO AC-BRKFST [facility] Last Admin: 04/24/19 06:57 Dose: 40 mg Documented by: Senna/Docusate Sodium (Senokot-S) 2 each PO HS [facility] Last Admin: 04/23/19 21:18 Dose: 2 each Documented by: Theophylline (Marcos-24) 200 mg PO DAILY [facility] Last Admin: 04/24/19 08:30 Dose: 200 mg Documented by: Physical examination: VITAL SIGNS: 98.9, 63, 18, 180 bradycardia 3, 96% on 2 L GENERAL: Laying in bed, comfortable. EYES: Pupils equal. Conjunctiva normal. HEENT: External appearance of nose and ears normal, oral cavity grossly normal. NECK: JVD not raised; masses not palpable. HEART: First and second heart sounds are normal; no edema. LUNGS: Respiratory rate normal; clear to auscultation. ABDOMEN: Soft, nontender, liver spleen not palpable, no masses palpable. PSYCH: Answering simple questionsl. MUSCULAR skeletal: Evidence of OA in the hands and knees. Limited range of motion of left hip Investigations: Accu-Cheks noted from today White count 5.7 hemoglobin 10.5 potassium 4.4 bun 30 creatinine 1.53 Troponin less than 0.012 EKG tracing personally reviewed by me shows sinus bradycardia CT left hip shows acute transcervical fracture of the left proximal femur Chest x-ray film personally reviewed by me-borderline cardiomegaly, elevation left hemidiaphragm Assessment: -Left femur neck fracture secondary to fall -Diabetes mellitus type 2 on oral hypoglycemic -GERD -Essential hypertension, uncontrolled -Primary osteoarthritis -Chronic kidney disease stage III likely from nephrosclerosis -Metabolic acidosis from chronic kidney disease -Sinus bradycardia likely from being on beta charlette -Normocytic anemia likely secondary to chronic kidney disease Plan: We'll increase the Norvasc to 5 mg twice a day. Other medications to continue. Thank Dr. Fraire
[2019-04-24] MEDS: FENOFIBRATE 160 MG TAB PO SCH (20:24)
[2019-04-24] MEDS: SENNOSIDES-DOCUSATE SODIUM 1 EACH TAB PO SCH (20:24)
[2019-04-24 20:43] LABS: Glucose,Whole Blood 224 mg/dL (75-99)
[2019-04-25 07:11] LABS: Glucose,Whole Blood 122 mg/dL (75-99)
[2019-04-25] MEDS: INSULIN ASPART (NovoLOG) 100 UNIT/ML VIAL SQ SCH ×4 (08:47→21:19)
[2019-04-25] MEDS: ALLOPURINOL 100 MG TAB PO SCH ×2 (08:48→21:20)
[2019-04-25] MEDS: THEOPHYLLINE 24 HOUR 200 MG CAP.ER.24H PO SCH (08:48)
[2019-04-25] MEDS: HEPARIN SODIUM,PORCINE 5,000 UNIT/ML 1 ML VIAL SQ SCH ×2 (08:48→21:19)
[2019-04-25] MEDS: amLODIPine 10 MG TAB PO SCH (08:48)
[2019-04-25] MEDS: PANTOPRAZOLE 40 MG TABLET PO SCH (08:48)
[2019-04-25] MEDS: LOSARTAN 50 MG TAB PO SCH (08:48)
[2019-04-25] MEDS ORDERED: IV FLUID CONTINUATION 700 ML IV ONE (09:23)
[2019-04-25 10:10] LABS: Glucose,Whole Blood 153 mg/dL (75-99)
[2019-04-25] MEDS ORDERED: MD COMMUNICATION TO PHARMACY 1 EACH MISC PO PRN (10:10)
[2019-04-25] MEDS ORDERED: PHENYLEPHRINE-0.9% NACL SYG 1 MG/10 ML SYRINGE ONE (10:51)
[2019-04-25] MEDS ORDERED: MIDAZOLAM 2 MG/2 ML VIAL ONE (10:51)
[2019-04-25] MEDS ORDERED: KETAMINE 10 MG/ML 20 ML VIAL ONE (10:51)
[2019-04-25] MEDS ORDERED: PROPOFOL 10 MG/ML 20 ML VIAL IV ONE (10:51)
[2019-04-25] MEDS ORDERED: SODIUM CHLORIDE 0.9% 500 ML 500 ML IV ONE (11:30)
[2019-04-25] MEDS ORDERED: hydrOXYzine PAMOATE 25 MG CAP PO PRN (13:10)
--- NOTE | 2019-04-25 13:28 | P.OP ---
Date of Procedure: 04/25/19 Preoperative Diagnosis: 1. Displaced left femoral neck fracture 2. Type 2 diabetes 3. Stage II renal insufficiency 4. Sick sinus syndrome 5. Dyslipidemia 6. Chronic sacral decubitus ulcers Postoperative Diagnosis: Same Procedure(s) Performed: Left cemented hip hemiarthroplasty Anesthesia: JD Surgeon: Chaka Fraire Environmental Lead #1: Evaristo Cabrera Estimated Blood Loss (ml): 50 IV fluids (ml): 500 Pathology: other (Femoral head to pathology) Condition: stable Disposition: PACU Indications for Procedure: The patient is a very pleasant 78-year-old female with multiple medical problems including chronic kidney disease, diabetes, 6 sinus syndrome, decubitus ulcers, and mild dementia who lives in a long-term care facility and sustained a ground- level fall. She was brought to the ER where x-rays and a computed tomography scan showed a displaced femoral neck fracture. I met with the patient preoperatively discuss treatment. My recommendation was to perform a cemented hip hemiarthroplasty. We discussed potential risks and complications of surgery including but not limited to risk of anesthesia, infection, damage to local blood vessels or nerves, intraoperative or postoperative fracture, hip dislocation, limb length discrepancy, DVT, PE, other medical complications, and possibly loss of life. The patient understands due to her multiple medical problems that she is at a higher risk having a complication. Her guardian provided their consent to go forward with surgery. Description of Procedure: The patient was identified in preop holding and the correct left leg was marked with my initials. I reviewed the consent form with the patient and all of her questions were answered. She was then brought back to the operating room. She was positioned on the OR table where a spinal anesthetic was administered. She was then positioned in the lateral decubitus position with the right side down and the affected left hip up. She was secured to the OR table with a Montral frame. Axillary roll was placed. The down leg was padded. The left leg was then prepped and draped in the standard sterile fashion. Prior to starting surgery timeout was performed identifying the correct patient, operative extremity, and procedure. I verified that the patient had received preoperative antibiotics. I began by marking a standard posterolateral approach over the proximal femur. Skin incision with a scalpel and dissection was carried down carefully through subcutaneous tissue with electrocautery. Bleeding vessels were controlled. The IT band was then split longitudinally in line with the femur distally and the muscle fibers of gluteus heber were bluntly spread proximally. There was severe scarring of the undersurface of the IT band to the trochanteric bursa which was elevated. The trochanteric bursa was elevated off the posterior femur. The piriformis and short external rotators were then released off of the femur with electrocautery. The posterior hip capsule was teed. There was a displaced transcervical femoral neck fracture. The head was removed, sized, and sent to pathology. Retractors were placed. A box osteotome was used to gain interest to the proximal canal. A canal finder was then placed. An opening reamer was used taking care to lateralize. I then sequentially broached in 1 mm increments until a 10 mm broach felt stable. A calcar planar was used to bring the femoral neck flush with the broach. I then trialed with a +0 offset 44 mm head which felt unstable. The hip was dislocated and a +4 offset head was then trialed and felt stable. The trial implants were removed. A moist Ray-Antonio sponge was placed in the acetabulum. The proximal femur was irrigated to prepare for cement due to the patient's poor bone quality. A cement restrictor was placed distally. Cement was mixed and final implants were dispensed. After cement was pressurized into the proximal femur the final implant was gently tapped in place taking care to place the implant matching the patient's naknek version. The stem was held in place and allowed to harden. All excess cement was removed. The moist Ray-Antonio was removed from the acetabulum. The Graves t aper and trunnion were cleaned and a final 44 mm +4 head was dispensed and gently tapped into place engaging the Graves taper. The wound was thoroughly irrigated and the hip was reduced. The hip was brought through range of motion and found to be stable. Leg lengths appeared symmetric. The capsule was closed with interrupted 0 Vicryl the piriformis was repaired to the posterior femur using #2 Ethibond and modified Chava-David stitch grasping the tendon. The IT band was then repaired with a running Quill stitch. The deep subcu was reapproximated using 0 Vicryl. The superficial subcu was reapproximated using 2-0 Vicryl. The skin was closed with a running subcuticular Monocryl Quill stitch and was reinforced with Dermabond. A sterile dressing was applied. I verified that all instrument, sponge, and sharp counts were correct. The drapes were gently taken down and a dressing was applied over the patient's pre- existing sacral decubitus ulcer. A hip abduction pillow was placed. The patient was then carefully taken off of the OR table and transferred to a gurney. She was brought to recovery room having tolerated the procedure well. In the recovery room postoperative x-rays showed a cemented hip hemiarthroplasty in place with no acute fractures or sign of dislocation. Evaristo Cabrera PAC was required as a skilled property management assistant for patient positioning, surgical exposure, retraction, placement of implants, closure of wound, and application of dressing. Plan: The patient is going to be readmitted to the floor. She can weight-bear as tolerated on her left leg. She is to follow posterior hip precautions. She will receive 2 doses of postoperative antibiotics. DVT prophylaxis with Lovenox 4 weeks. Internal medicine and cardiology for perioperative medical management. Discharge planning is pending.
[2019-04-25 13:42] LABS: Glucose,Whole Blood 153 mg/dL (75-99)
--- NOTE | 2019-04-25 13:46 | XR ---
EXAMINATION TYPE: XR Hip Limited LT DATE OF EXAM: 04/25/2019 CLINICAL HISTORY: Left hip pain and osteoarthritis. TECHNIQUE: Single AP portable view of left hip is obtained immediately postoperatively. COMPARISON: None. FINDINGS: Metallic hardware from left hip arthroplasty is seen and appears satisfactory in alignment and position. There is evidence of recent surgery with subcutaneous gas noted laterally. IMPRESSION: Metallic hardware from left hip arthroplasty is satisfactory in position.
[2019-04-25] MEDS: ONDANSETRON 4 MG/2 ML VIAL IVP PRN (13:54)
[2019-04-25] MEDS ORDERED: HYDROmorphone 1 MG/ML 1 ML SYRINGE IVP ONE (14:12)
[2019-04-25] MEDS ORDERED: SODIUM CHLORIDE 0.9% 1,000 ML IV ONE (14:15)
[2019-04-25 16:49] LABS: Glucose,Whole Blood 169 mg/dL (75-99)
[2019-04-25 16:51] LABS: Basophils % (A) 0 %; Eosinophils % (A) 0 %; HCT 31.9 % (34.0-46.0); HGB 10.4 gm/dL (11.4-16.0); Lymphocytes # (A) 0.5 k/uL (1.0-4.8); Lymphocytes % (A) 5 %; MCH 33.3 pg (25.0-35.0); MCHC 32.4 g/dL (31.0-37.0); MCV 102.6 fL (80.0-100.0); Macrocytosis Slight; Mean Platelet Volume 8.2; Monocytes # (A) 0.6 k/uL (0-1.0); Monocytes % (A) 6 %; Neutrophils # (A) 8.8 k/uL (1.3-7.7); Neutrophils % (A) 88 %; Platelet Count 191 k/uL (150-450); RBC 3.11 m/uL (3.80-5.40); RDW 14.8 % (11.5-15.5)
[2019-04-25 20:26] LABS: Glucose,Whole Blood 221 mg/dL (75-99)
[2019-04-25] MEDS: FENOFIBRATE 160 MG TAB PO SCH (21:20)
[2019-04-25] MEDS: HYDROcodone/APAP 7.5-325MG 1 EACH TAB PO PRN (21:20)
[2019-04-25] MEDS: SENNOSIDES-DOCUSATE SODIUM 1 EACH TAB PO SCH (21:20)
[2019-04-26] MEDS: HYDROcodone/APAP 7.5-325MG 1 EACH TAB PO PRN ×2 (02:26→13:02)
[2019-04-26] MEDS: ONDANSETRON 4 MG/2 ML VIAL IVP PRN ×2 (02:26→09:26)
[2019-04-26 06:57] LABS: Glucose,Whole Blood 203 mg/dL (75-99)
[2019-04-26 07:44] LABS: Calcium 8.8 mg/dL (8.4-10.2); Magnesium 2.1 mg/dL (1.6-2.3); Potassium 4.1 mmol/L (3.5-5.1)
[2019-04-26] MEDS: HEPARIN SODIUM,PORCINE 5,000 UNIT/ML 1 ML VIAL SQ SCH (07:47)
[2019-04-26] MEDS: INSULIN ASPART (NovoLOG) 100 UNIT/ML VIAL SQ SCH ×2 (07:48→13:02)
[2019-04-26] MEDS: LOSARTAN 50 MG TAB PO SCH (07:48)
[2019-04-26] MEDS: PANTOPRAZOLE 40 MG TABLET PO SCH (07:48)
[2019-04-26] MEDS: ALLOPURINOL 100 MG TAB PO SCH (07:48)
[2019-04-26] MEDS: amLODIPine 10 MG TAB PO SCH (07:48)
[2019-04-26 07:53] VITALS: BP 152/96; PULSE 72; RESP 16; TEMP 99
[2019-04-26 11:59] LABS: Glucose,Whole Blood 167 mg/dL (75-99)
[2019-04-26] MEDS ORDERED: glipiZIDE 5 MG TAB PO SCH (12:00)
[2019-04-26] MEDS ORDERED: METOPROLOL TARTRATE 12.5 MG TAB PO SCH (12:20)
--- NOTE | 2019-04-26 12:22 | P.DS ---
Providers Date of admission: 04/23/19 01:12 Expected date of discharge: 04/26/19 Attending physician: Chaka Fraire Consults: 04/23/19 01:17 Consult Physician Routine Consulting Provider: Des Mayberry Consult Reason/Comments: Medical clearance, bradycardia status post fall, left hip fracture Do you want consulting provider notified?: Yes, Notify in am 04/23/19 12:05 Consult Physician Urgent Consulting Provider: Fatmata Garcia Consult Reason/Comments: maked bradycardia Do you want consulting provider notified?: Yes Primary care physician: Lionel Avelina [facility] Course: This is a 78-year-old female who presented on 04/22/19 after falling and sustaining injury to the left hip. On exam and x-ray in the emergency department she was found to have an acute transcervical femoral neck fracture. The patient was admitted under the care of Dr. Fraire for surgical intervention and care. The patient is taken to surgery for a left hip hemiarthroplasty on 04/25/19. The procedure is performed without complication or sequelae. Labs and vital signs are stable on post-operative day #1. Today is postoperative day #1. The patient is examined bedside. She describes minimal pain in the left hip. She has been up with physical therapy to the chair, with minimal issues or pain. She states she has had a bowel movement since surgery. She notes mild nausea with pain medication administration last night, although this has since resolved. She has been tolerating her diet well. She denies abdominal pain. She denies numbness or tingling of the left lower extremity, chest pain, shortness of breath, vomiting. She has no new complaints or concerns today. Vital signs stable. On examination, the patient is sitting in bed in no apparent distress. She is able to follow commands and answer questions. On inspection of the left hip, there is a clean, dry, intact surgical dressing in place. Abductor pillow in place. Catheter in place. Patient has good motion of her left ankle and toes. The left lower extremity is warm and well-perfused with brisk capillary refill of all toes. Dorsalis pedis pulse palpable. Sensation is intact to light touch of the left lower extremity. The calves are soft and non-tender to palpation bilaterally. The patient is discharged to inpatient rehab pending medical clearance today. [facility] for accurate list of medications. Patient Condition at Discharge: Fair Plan - Discharge Summary New Discharge Prescriptions: New Hydrocodone/Acetaminophen [[place] 5-325] 1 tab PO Q4-6H PRN #40 tab PRN Reason: Pain Enoxaparin Sodium [Lovenox] 30 mg SQ DAILY #28 syringe amLODIPine [Norvasc] 10 mg PO DAILY tab Continue glipiZIDE [Glucotrol] 5 mg PO AC-BID Acetaminophen Tab [Tylenol] 500 mg PO Q6H PRN PRN Reason: Pain Omeprazole [PriLOSEC] 20 mg PO AC-BRKFST Losartan [Cozaar] 100 mg PO DAILY Sennosides-Docusate Sodium [Senokot-S] 2 tab PO HS Fenofibrate Nanocrystallized [Tricor] 145 mg PO HS Allopurinol [Zyloprim] 100 mg PO BID Nystatin 100,000 Unit/gm Powd [Mycostatin Powder] 1 applic TOPICAL DAILY PRN PRN Reason: UNDER BREAST Discontinued Potassium Chloride [K-Tab ER] 8 meq PO DAILY Promethazine/Dextromethorphan [Promethazine-Dm Syrup] 5 - 10 ml PO Q6H PRN PRN Reason: Cough Furosemide [Lasix] 20 mg PO DAILY Atenolol [Tenormin] 25 mg PO HS Discharge Medication List glipiZIDE [Glucotrol] 5 mg PO AC-BID 05/13/16 [History] Acetaminophen Tab [Tylenol] 500 mg PO Q6H PRN 06/22/16 [History] Losartan [Cozaar] 100 mg PO DAILY 04/03/17 [History] Omeprazole [PriLOSEC] 20 mg PO AC-BRKFST 04/03/17 [History] Allopurinol [Zyloprim] 100 mg PO BID 04/22/19 [History] Fenofibrate Nanocrystallized [Tricor] 145 mg PO HS 04/22/19 [History] Nystatin 100,000 Unit/gm Powd [Mycostatin Powder] 1 applic TOPICAL DAILY PRN 04/22/19 [History] Sennosides-Docusate Sodium [Senokot-S] 2 tab PO HS 04/22/19 [History] Enoxaparin Sodium [Lovenox] 30 mg SQ DAILY #28 syringe 04/26/19 [Rx] Hydrocodone/Acetaminophen [[place] 5-325] 1 tab PO Q4-6H PRN #40 tab 04/26/19 [Rx] Metoprolol Tartrate [Lopressor] 12.5 mg PO DAILY #90 tab 04/26/19 [Rx] amLODIPine [Norvasc] 10 mg PO DAILY tab 04/26/19 [Rx] Follow up Appointment(s)/Referral(s): Mary Malave MD [STAFF PHYSICIAN] - 2 Weeks None,Stated [REFERRING] - 1-2 days Chaka Fraire MD [Medical Doctor] - 2 Weeks Activity/Diet/Wound Care/Special Instructions: -Weight bearing as tolerated on your left leg and a walker. Up with assistance. -Continue posterior hip precautions for 6 weeks post-operatively. -Take pain medications as prescribed. Take Colace as a stool softener. Take Lovenox as prescribed to prevent blood clots. - Leave surgical dressing in place for 7-10 days. After dressing is removed, you may shower and get incision. After showering, pat dry with a clean towel and keep incision covered with a bandage or gauze. Do not soak incision in a bath. - Follow-up with Dr. Fraire in the office in two weeks. - Call the office with any questions or concerns, Discharge Disposition: TRANSFER TO SNF/ECF
--- NOTE | 2019-04-26 13:38 | CDI ---
Documentation Clarification Form Date: 04/26/2019 1:16:29 PM From: Julia Barriga RN CCDS Admit Date: 04/23/2019 1:12:00 AM Patient Name: Alyssa Whitaker Visit Number: [id number] Discharge Date: ATTENTION: The Clinical Documentation Specialists (CDI) and [facility] Coding Staff appreciate your assistance in clarifying documentation. Please respond to the clarification below the line at the bottom and electronically sign. The CDI & [facility] Coding staff will review the response and follow-up if needed. Please note: Queries are made part of the Legal Health Record. If you have any questions, please contact the author of this message via ITS. Dr. Chaka Fraire A Sacral Decubitus ulcer was documented in the Procedure Note History/Risk Factors: 78 year old female presents to the ED Via EMS after a fall. Medical History DM, GERD, HTN, OA, CKD II, Clinical Indicators: Location: Left Sacral Wound description: No description given. Treatment: Dressing applied Elements for accurate and compliant documentation of an ulcer: *The location/laterality of the ulcer *Etiology (decubitus/pressure, diabetic, PVD) *Stage I-IV, Unstageable, Suspected Deep Tissue Injury (To the deepest stage) *If the ulcer was present at admission (POA) or occurred after admission In your professional opinion, can you please clarify the diagnosis, location, laterality and whether present on admission (POA): Stage 1 Pressure/Decubitus Ulcer (intact skin, non-blanching redness of local area) Stage 2 Pressure/Decubitus Ulcer (Partial thickness, loss of dermis, pink wound bed) Stage 3 Pressure/Decubitus Ulcer (Full thickness tissue loss) Stage 4 Pressure/Decubitus Ulcer (Full thickness tissue loss with exposed bone, tendon, or muscle. May have slough or eschar present) Unstageable Other condition, please specify Unable to determine Please indicate etiology of pressure ulcer (if known). (Last Revision: June 2017) RALPHD
--- NOTE | 2019-04-26 13:59 | P.PN ---
Subjective This is a pleasant 78 showed female past medical history significant for hypertension, sick sinus syndrome, dyslipidemia, diabetes mellitus and chronic kidney disease. She follows in the office with Dr. Malave. We have been asked to see her in consultation secondary to bradycardia. She initially presented to the hospital last evening after suffering a fall at home and was found to have an acute transcervical left femur fracture. She has been seen by orthopedic surgery and plans for surgical intervention with a hemiarthroplasty this afternoon. She has seen and examined resting comfortably in bed in no acute distress. Telemetry tracings reveal sinus bradycardia. Heart rate goes as low as 37. At the time of my exam heart rate is in the mid 50s. She denies chest pain, shortness of breath, dizziness or palpitations. 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 She denies having any dizziness or lightheaded associated with her fall. She states she does fall frequently from time to time. EKG on admission reveals sinus bradycardia with a heart rate of 47 with nons pecific T-wave flattening noted. Repeat EKG this afternoon reveals ongoing sinus bradycardia heart rate of 37 with left axis deviation. Chest x-ray is negative for an acute cardiopulmonary process. Laboratory data reviewed, WBC 5.7, hemoglobin 10.5, platelets 263, sodium 139, potassium 4.4, creatinine 1.53 with a GFR of 33, magnesium 2.2, cardiac enzymes negative 1, lipase 364. Current cardiac medications include atenolol 25 mg at bedtime, Lasix 20 mg daily, losartan 100 mg daily, potassium supplementation. Most recent echocardiogram obtained in 2017 reveals preserved LV systolic function with ejection fraction 5% with concentric LVH. 04/24/2019 Patient is seen and examined resting comfortably in bed eating lunch. She denies symptoms of chest discomfort, shortness of breath, dizziness or palpitations. Blood pressure 182/71 heart rate 54 afebrile maintaining oxygen saturation on nasal cannula. Amlodipine has been admitted for blood pressure control. Surgery scheduled for tomorrow. Echocardiogram obtained reveals preserved LV systolic function with ejection fraction 55-60%. 04/26/2019 Pt underwent left cemented hemiarthroplasty yesterday with Dr. Fraire. She is seen and examined sitting up in the chair in no acute distress. Plan is for discharge to rehab facility this afternoon. She denies chest pain, shortness of breath, dizziness or palpitations. She has had some brief episodes of SVT. Earlier today in the setting of feeling overly nauseated and dry heaving she went into SVT with heart rate of 160-170. She was asked to bare down and take some deep breaths. This did convert her to a sinus rate. EKG obtained revealed sinus mechanism with left axis deviation. Blood pressure is 152/96. Laboratory data reviewed, sodium 141, potassium 4.1, creatinine 1.28. GENERAL: This is a 78-year-old female in no apparent distress at the time of my examination. HEENT: Head is atraumatic, normocephalic. Pupils are equal, round. Sclerae anicteric. Conjunctivae are clear. Mucous membranes of the mouth are moist. Neck is supple. There is no jugular venous distention. No carotid bruit is heard. LUNGS: Clear to auscultation no wheezes, rales or rhonchi. No chest wall tenderness is noted on palpation or with deep breathing. HEART: Regular rate and rhythm with short systolic ejection murmur at the base, no rubs or gallops. S1 and S2 heard. EXTREMITIES: No evidence of peripheral edema and no calf tenderness noted. ASSESSMENT Acute left femur fracture Sinus bradycardia, asymptomatic Hypertension Dyslipidemia Diabetes mellitus Chronic kidney disease PLAN Use small dose of lopressor to prevent intermittent tachy-arrhythmia. Overall stable from a cardiac perspective. Follow up with Dr. Malave in 2 weeks. Nurse Practitioner note has been reviewed, I agree with a documented findings and plan of care. Patient was seen and examined. Objective - Vital Signs Vital signs: Vital Signs Temp 99.0 F 04/26/19 06:50 Pulse 72 04/26/19 06:50 Resp 16 04/26/19 06:50 BP 152/96 04/26/19 06:50 Pulse Ox 100 04/26/19 06:50 Intake & Output 04/25/19 04/26/19 04/26/19 18:59 06:59 18:59 Intake Total 1540 600 Output Total 550 1100 Balance 990 -500 Intake: IV 1300 Oral 240 600 Output: Urine 500 1100 Estimated Blood Loss 50 Other: Voiding Method Indwelling Catheter Indwelling Catheter Indwelling Catheter - Labs CBC & Chem 7: 04/25/19 16:07 04/26/19 06:51 Labs: Abnormal Lab Results - Last 24 Hours (Table) 04/25/19 04/25/19 04/25/19 Range/Units 16:07 16:47 20:14 RBC 3.11 L (3.80-5.40) m/uL Hgb 10.4 L (11.4-16.0) gm/dL Hct 31.9 L (34.0-46.0) % MCV 102.6 H (80.0-100.0) fL Neutrophils # 8.8 H (1.3-7.7) k/uL Lymphocytes # 0.5 L (1.0-4.8) k/uL Chloride (98-107) mmol/L BUN (7-17) mg/dL Creatinine (0.52-1.04) mg/dL Glucose (74-99) mg/dL POC Glucose (mg/dL) 169 H 221 H (75-99) mg/dL 04/26/19 04/26/19 04/26/19 Range/Units 06:51 06:53 11:57 RBC (3.80-5.40) m/uL Hgb (11.4-16.0) gm/dL Hct (34.0-46.0) % MCV (80.0-100.0) fL Neutrophils # (1.3-7.7) k/uL Lymphocytes # (1.0-4.8) k/uL Chloride 110 H (98-107) mmol/L BUN 18 H (7-17) mg/dL Creatinine 1.28 H (0.52-1.04) mg/dL Glucose 191 H (74-99) mg/dL POC Glucose (mg/dL) 203 H 167 H (75-99) mg/dL
--- NOTE | 2019-04-27 16:58 | P.PN ---
Progress Note - Text Progress Note Date: 04/26/19 - Chief Complaint Left hip pain Interval history: Status post left hip surgery. Doing better. Laying in bed. Pain control. No new issues. Tolerated diet. Breathing stable Review of systems: Was done for constitutional, cardiovascular, GI, pulmonary. Musculoskeletal relevant finding as above Current medications are reviewed from electronic medical record of today state Physical examination: VITAL SIGNS: 99, 72, 16, 1 52 x 96, 100% on 2 L GENERAL: Laying in bed, comfortable. EYES: Pupils equal. Conjunctiva normal. HEENT: External appearance of nose and ears normal, oral cavity grossly normal. NECK: JVD not raised; masses not palpable. HEART: First and second heart sounds are normal; no edema. LUNGS: Respiratory rate normal; clear to auscultation. ABDOMEN: Soft, nontender, liver spleen not palpable, no masses palpable. PSYCH: Answering simple questionsl. MUSCULAR skeletal: Evidence of OA in the hands and knees. Limited range of motion of left hip Investigations: Potassium 4.1 bun 18 creatinine 1.28 Hemoglobin 10.4 Troponin less than 0.012 EKG tracing personally reviewed by me shows sinus bradycardia CT left hip shows acute transcervical fracture of the left proximal femur Chest x-ray film personally reviewed by me-borderline cardiomegaly, elevation left hemidiaphragm Assessment: -Left femur neck fracture secondary to fall followed by hemiarthroplasty -Diabetes mellitus type 2 on oral hypoglycemic -GERD -Essential hypertension, uncontrolled -Primary osteoarthritis -Chronic kidney disease stage III likely from nephrosclerosis -Metabolic acidosis from chronic kidney disease -Sinus bradycardia likely from being on beta charlette -Normocytic anemia likely secondary to chronic kidney disease Plan: Stable. Continue current medications for plan. Thank
== END 2019-04-26 15:15 | DRG 470 ==
LOC: EC 23:43 → 4SSUR 04-23 01:12
PROVIDERS: ADMIT Orthopaedic Surgery; ATTEND Orthopaedic Surgery
PROC: 0SRS0J9 Replacement of Left Hip Joint, Femoral Surface with Synthetic Substitute, Cemented, Open Approach (ICD-10-PCS; principal; 2019-04-23)
DX: S72.032A Displaced midcervical fracture of left femur, initial encounter for closed fracture (principal); E87.2 Acidosis; I47.1 Supraventricular tachycardia; W19.XXXA Unspecified fall, initial encounter; K21.9 Gastro-esophageal reflux disease without esophagitis; H91.90 Unspecified hearing loss, unspecified ear; I12.9 Hypertensive chronic kidney disease with stage 1 through stage 4 chronic kidney disease, or unspecified chronic kidney disease; E11.22 Type 2 diabetes mellitus with diabetic chronic kidney disease; I49.5 Sick sinus syndrome; M10.9 Gout, unspecified; N18.3 Chronic kidney disease, stage 3 (moderate); L89.159 Pressure ulcer of sacral region, unspecified stage; D63.1 Anemia in chronic kidney disease; M19.91 Primary osteoarthritis, unspecified site; E78.5 Hyperlipidemia, unspecified; R29.6 Repeated falls; F03.90 Unspecified dementia, unspecified severity, without behavioral disturbance, psychotic disturbance, mood disturbance, and anxiety; E03.9 Hypothyroidism, unspecified; W01.0XXA Fall on same level from slipping, tripping and stumbling without subsequent striking against object, initial encounter; Z90.49 Acquired absence of other specified parts of digestive tract; Y92.009 Unspecified place in unspecified non-institutional (private) residence as the place of occurrence of the external cause; Z79.84 Long term (current) use of oral hypoglycemic drugs; Z79.899 Other long term (current) drug therapy; Z90.710 Acquired absence of both cervix and uterus; Z88.6 Allergy status to analgesic agent; Z87.891 Personal history of nicotine dependence
CPT/HCPCS: 36415; 71045; 73501; 73502; 80048; 80053; 81001; 82550; 83690; 83735; 84443; 84484; 85025; 86850; 86900; 86901; 93005; 93306; 96361; 96374; 96375; 96376; 99285

== ENCOUNTER 2019-05-07 10:21 | Inpatient (IN) | payer MEDICARE, OTHER ==
[2019-05-07] MEDS ORDERED: SODIUM CHLORIDE 0.9% 1,000 ML IV STA ×2 (10:42)
[2019-05-07] MEDS ORDERED: PANTOPRAZOLE 40 MG/10 ML VIAL IVP STA (10:42)
--- NOTE | 2019-05-07 10:55 | ED ---
General Adult HPI - General Source: patient, EMS, RN notes reviewed Mode of arrival: EMS Limitations: no limitations <Uli Daniel - Last Filed: 05/07/19 13:43> <Wyatt Ramirez - Last Filed: 05/07/19 13:49> - General Chief complaint: GI Bleed Stated complaint: GI Bleed Time Seen by Provider: 05/07/19 10:23 - History of Present Illness Initial comments: This a 78-year-old female [facility] weakness, possible GI bleed. Patient has been more lethargic than usual, has been having severe diarrhea and vomiting. They do report that seemed to be dark in nature. Patient is currently on Lovenox secondary to recent hip fracture. herself has no complaints at all information is very limited. She does deny chest pain, shortness breath, headache. Patient denies any current nausea. (Uli Daniel) - Related Data Home Medications Medication Instructions Recorded Confirmed glipiZIDE [Glucotrol] 5 mg PO AC-BID 05/13/16 05/07/19 Acetaminophen Tab [Tylenol] 500 mg PO Q6H PRN 06/22/16 05/07/19 Losartan [Cozaar] 100 mg PO DAILY 04/03/17 05/07/19 Omeprazole [PriLOSEC] 20 mg PO AC-BRKFST 04/03/17 05/07/19 Allopurinol [Zyloprim] 100 mg PO BID 04/22/19 05/07/19 Fenofibrate Nanocrystallized 145 mg PO HS 04/22/19 05/07/19 [Tricor] Nystatin 100,000 Unit/gm Powd 1 applic TOPICAL DAILY PRN 04/22/19 05/07/19 [Mycostatin Powder] Sennosides-Docusate Sodium 2 tab PO HS 04/22/19 05/07/19 [Senokot-S] Hydrocodone/Acetaminophen [[place] 1 tab PO Q4H PRN 05/07/19 05/07/19 5-325] Previous Rx's Medication Instructions Recorded Enoxaparin Sodium [Lovenox] 30 mg SQ DAILY #28 syringe 04/26/19 Metoprolol Tartrate [Lopressor] 12.5 mg PO DAILY #90 tab 04/26/19 amLODIPine [Norvasc] 10 mg PO DAILY tab 04/26/19 Allergies Allergy/AdvReac Type Severity Reaction Status Date / Time ibuprofen [From Motrin IB] Allergy Unknown Verified 05/07/19 10:51 Review of Systems ROS Other: All systems not noted in ROS Statement are negative. <Uli Daniel - Last Filed: 05/07/19 13:43> ROS Other: All systems not noted in ROS Statement are negative. <Wyatt Ramirez - Last Filed: 05/07/19 13:49> ROS Statement: Those systems with pertinent positive or pertinent negative responses have been documented in the HPI. Past Medical History Past Medical History: Diabetes Mellitus, GERD/Reflux, Hearing Disorder / Deafness, Hypertension, Osteoarthritis (OA), Renal Disease, Thyroid Disorder Additional Past Medical History / Comment(s): acute posthemorrhagic anemia,abno rmal uterine and vaginal bleeding, Leiomyoma of uterus, tachycardia, Generalized muscle weakness, Chronic kidney disease stage 2 (mild), History of Any Multi-Drug Resistant Organisms: None Reported Past Surgical History: Appendectomy, Hysterectomy Additional Past Surgical History / Comment(s): fistula L upper arm Past Anesthesia/Blood Transfusion Reactions: No Reported Reaction Past Psychological History: No Psychological Hx Reported Smoking Status: Former smoker - Past Family History Mother History Unknown: Yes Father History Unknown: Yes <Uli Daniel - Last Filed: 05/07/19 13:43> General Exam Limitations: no limitations General appearance: alert, in no apparent distress Head exam: Present: atraumatic, normocephalic, normal inspection ENT exam: Present: mucous membranes dry Neck exam: Present: normal inspection, full ROM. Absent: tenderness, meningismus, lymphadenopathy Respiratory exam: Present: normal lung sounds bilaterally. Absent: respiratory distress, wheezes, rales, rhonchi, stridor Cardiovascular Exam: Present: regular rate, normal rhythm, normal heart sounds. Absent: systolic murmur, diastolic murmur, rubs, gallop, clicks GI/Abdominal exam: Present: soft, normal bowel sounds. Absent: distended, tenderness, guarding, rebound, rigid Neurological exam: Present: alert. Absent: oriented X3 Skin exam: Present: warm, dry, intact, normal color. Absent: rash <Uli Daniel - Last Filed: 05/07/19 13:43> Course Vital Signs 05/07/19 05/07/1905/07/19 10:22 11:11 12:55 Temperature 97.9 F Pulse Rate 84 92 93 Respiratory 22 22 20 Rate Blood Pressure 129/71 132/72 131/80 O2 Sat by Pulse 98 97 99 Oximetry EKG Findings - EKG Comments: EKG Findings:: EKG performed at 10:29 normal sinus rhythm rate of 87 MS 156/76 QT status QTC 362/435 <Uli Daniel - Last Filed: 05/07/19 13:43> Medical Decision Making - Lab Data Result diagrams: 05/07/19 11:00 05/07/19 11:00 <Uli Daniel - Last Filed: 05/07/19 13:43> - Lab Data Result diagrams: 05/07/19 11:00 05/07/19 11:00 <Wyatt Ramirez - Last Filed: 05/07/19 13:49> - Medical Decision Making 78-year-old female presented for lethargy, possible GI bleed. Patient's phone to have acute kidney injury, dehydration, lethargic. Patient will be admitted for GI bleed, dehydration with IV hydration, elevated troponin with trending troponin is no acute EKG changes. (Uli Daniel) Case discussed with practitioner Uli. Patient was reexamined and reevaluated by myself, Dr. Ramirez. Patient resting comfortably in bed. I do agree with PA findings. This includes diagnostic interpretation and treatment plan. Case was discussed in detail with Dr. Mills, covering for Dr. Mayberry, who admits for Dr. Teresa, who will admit. (Wyatt Ramirez) - Lab Data Lab Results 05/07/19 05/07/19 05/07/19 Range/Units 11:00 11:00 11:00 WBC 12.0 H (3.8-10.6) k/uL RBC 3.26 L (3.80-5.40) m/uL Hgb 10.3 L (11.4-16.0) gm/dL Hct 32.2 L (34.0-46.0) % MCV 98.7 (80.0-100.0) fL MCH 31.7 (25.0-35.0) pg MCHC 32.1 (31.0-37.0) g/dL RDW 15.4 (11.5-15.5) % Plt Count 592 H (150-450) k/uL Neutrophils % (Manual) 87 % Band Neutrophils % 6 % Lymphocytes % (Manual) 2 % Monocytes % (Manual) 5 % Neutrophils # (Manual) 11.10 H (1.3-7.7) k/uL Lymphocytes # (Manual) 0.24 L (1.0-4.8) k/uL Monocytes # (Manual) 0.60 (0-1.0) k/uL Nucleated RBCs 0 (0-0) /100 WBC Manual Slide Review Performed RBC Morphology Normal PT 11.5 (9.0-12.0) sec INR 1.1 (<1.2) APTT 31.4 H (22.0-30.0) sec Sodium 133 L (137-145) mmol/L Potassium 5.4 H (3.5-5.1) mmol/L Chloride 95 L (98-107) mmol/L Carbon Dioxide 22 (22-30) mmol/L Anion Gap 16 mmol/L BUN 84 H (7-17) mg/dL Creatinine 2.68 H (0.52-1.04) mg/dL Est GFR (CKD-EPI)AfAm 19 (>60 ml/min/1.73 sqM) Est GFR (CKD-EPI)NonAf 17 (>60 ml/min/1.73 sqM) Glucose 274 H (74-99) mg/dL Calcium 9.9 (8.4-10.2) mg/dL Magnesium 2.9 H (1.6-2.3) mg/dL Total Bilirubin 1.1 (0.2-1.3) mg/dL AST 30 (14-36) U/L ALT 27 (9-52) U/L Alkaline Phosphatase 170 H (38-126) U/L Troponin I (0.000-0.034) ng/mL Total Protein 6.1 L (6.3-8.2) g/dL Albumin 3.1 L (3.5-5.0) g/dL Lipase 63 (23-300) U/L 05/07/19 Range/Units 11:00 WBC (3.8-10.6) k/uL RBC (3.80-5.40) m/uL Hgb (11.4-16.0) gm/dL Hct (34.0-46.0) % MCV (80.0-100.0) fL MCH (25.0-35.0) pg MCHC (31.0-37.0) g/dL RDW (11.5-15.5) % Plt Count (150-450) k/uL Neutrophils % (Manual) % Band Neutrophils % % Lymphocytes % (Manual) % Monocytes % (Manual) % Neutrophils # (Manual) (1.3-7.7) k/uL Lymphocytes # (Manual) (1.0-4.8) k/uL Monocytes # (Manual) (0-1.0) k/uL Nucleated RBCs (0-0) /100 WBC Manual Slide Review RBC Morphology PT (9.0-12.0) sec INR (<1.2) APTT (22.0-30.0) sec Sodium (137-145) mmol/L Potassium (3.5-5.1) mmol/L Chloride (98-107) mmol/L Carbon Dioxide (22-30) mmol/L Anion Gap mmol/L BUN (7-17) mg/dL Creatinine (0.52-1.04) mg/dL Est GFR (CKD-EPI)AfAm (>60 ml/min/1.73 sqM) Est GFR (CKD-EPI)NonAf (>60 ml/min/1.73 sqM) Glucose (74-99) mg/dL Calcium (8.4-10.2) mg/dL Magnesium (1.6-2.3) mg/dL Total Bilirubin (0.2-1.3) mg/dL AST (14-36) U/L ALT (9-52) U/L Alkaline Phosphatase (38-126) U/L Troponin I 0.072 H* (0.000-0.034) ng/mL Total Protein (6.3-8.2) g/dL Albumin (3.5-5.0) g/dL Lipase (23-300) U/L Disposition <Uli Daniel - Last Filed: 05/07/19 13:43> <Wyatt Ramirez - Last Filed: 05/07/19 13:49> Clinical Impression: Dehydration, Acute kidney injury, GI bleed, Nausea vomiting and diarrhea, Renata vated troponin Disposition: ADMITTED IP TO THIS HOSP Condition: Fair Referrals: Edmar Teresa DO [Primary Care Provider] - 1-2 days
[2019-05-07 11:56] LABS: HCT 32.2 % (34.0-46.0); HGB 10.3 gm/dL (11.4-16.0); MCH 31.7 pg (25.0-35.0); MCHC 32.1 g/dL (31.0-37.0); MCV 98.7 fL (80.0-100.0); Mean Platelet Volume 7.4; Platelet Count 592 k/uL (150-450); RBC 3.26 m/uL (3.80-5.40); RDW 15.4 % (11.5-15.5)
[2019-05-07 12:09] LABS: Albumin 3.1 g/dL (3.5-5.0); Calcium 9.9 mg/dL (8.4-10.2); INR 1.1 (<1.2); Magnesium 2.9 mg/dL (1.6-2.3); Partial Thromboplastin Time 31.4 sec (22.0-30.0); Potassium 5.4 mmol/L (3.5-5.1); Prothrombin Time 11.5 sec (9.0-12.0); Total Bilirubin 1.1 mg/dL (0.2-1.3); Total Protein 6.1 g/dL (6.3-8.2)
[2019-05-07 12:30] LABS: Band Neutrophils % 6 %; Lymphocytes # (M) 0.24 k/uL (1.0-4.8); Neutrophils % (M) 87 %; Nucleated Red Blood Cells 0 /100 WBC (0-0); Total Cells Counted 100
[2019-05-07] MEDS ORDERED: NALOXONE 0.4 MG/ML 1 ML VIAL IV PRN (13:46)
[2019-05-07 13:53] LABS: Bacteria,Urine Many /hpf; Mucus,Urine Rare /hpf; RBC,Urine 25 /hpf (0-5); Squamous Epithelial Cell,Urine 7 /hpf (0-4)
[2019-05-07 13:54] LABS: Appearance,Urine Bloody (Clear); Color,Urine Dark Red
[2019-05-07] MEDS: SODIUM CHLORIDE 0.9% 1,000 ML IV SCH (14:50)
[2019-05-07] MEDS ORDERED: ACETAMINOPHEN TAB 500 MG TAB PO PRN (16:20)
[2019-05-07] MEDS ORDERED: NYSTATIN 100,000 UNIT/GM POWD 15 GM TOPICAL PRN (16:20)
--- NOTE | 2019-05-07 18:34 | P.HPIM ---
History of Present Illness 68-year-old female was sent in here because of weakness possible GI bleed patient is extremely poor historian patient was believed to have dark stools was having diarrhea nausea vomiting. Patient if patient can use to have diarrhea will obtain C. diff testing patient is a poor unable to give much history to me patient did confirm that she did have diarrhea. Patient is on Lovenox a patient had a recent hip fracture. Not sure what her baseline mental status is patient appears to be oriented 2 extremely Drowsy found to be in acute renal failure patient was started on IV fluids no clear evidence of infection although does have leukocytosis elevated lactic acid, patient has a chronic Ferrer catheter because of which are patient urine is a contaminated urine sample all the cultures were obtained as of now will not start her on any antibiotics patient has elevated blood sugars Review of Systems negative except those mentioned above. Past Medical History Past Medical History: Diabetes Mellitus, GERD/Reflux, Hearing Disorder / Deafness, Hypertension, Osteoarthritis (OA), Renal Disease, Thyroid Disorder Additional Past Medical History / Comment(s): acute posthemorrhagic anemia,abnormal uterine and vaginal bleeding, Leiomyoma of uterus, tachycardia, Generalized muscle weakness, Chronic kidney disease stage 2 (mild), History of Any Multi-Drug Resistant Organisms: None Reported Past Surgical History: Appendectomy, Hysterectomy Additional Past Surgical History / Comment(s): fistula L upper arm Past Anesthesia/Blood Transfusion Reactions: No Reported Reaction Smoking Status: Former smoker - Past Family History Mother History Unknown: Yes Father History Unknown: Yes Medications and Allergies Home Medications Medication Instructions Recorded Confirmed Type glipiZIDE [Glucotrol] 5 mg PO AC-BID 05/13/16 05/07/19 History Acetaminophen Tab [Tylenol] 500 mg PO Q6H PRN 06/22/16 05/07/19 History Losartan [Cozaar] 100 mg PO DAILY 04/03/17 05/07/19 History Omeprazole [PriLOSEC] 20 mg PO AC-BRKFST 04/03/17 05/07/19 History Allopurinol [Zyloprim] 100 mg PO BID 04/22/19 05/07/19 History Fenofibrate Nanocrystallized 145 mg PO HS 04/22/19 05/07/19 History [Tricor] Nystatin 100,000 Unit/gm Powd 1 applic TOPICAL DAILY PRN 04/22/19 05/07/19 History [Mycostatin Powder] Sennosides-Docusate Sodium 2 tab PO HS 04/22/19 05/07/19 History [Senokot-S] Enoxaparin Sodium [Lovenox] 30 mg SQ DAILY #28 syringe 04/26/19 05/07/19 Rx Metoprolol Tartrate [Lopressor] 12.5 mg PO DAILY #90 tab 04/26/19 05/07/19 Rx amLODIPine [Norvasc] 10 mg PO DAILY tab 04/26/19 05/07/19 Rx Hydrocodone/Acetaminophen [[place] 1 tab PO Q4H PRN 05/07/19 05/07/19 History 5-325] Allergies Allergy/AdvReac Type Severity Reaction Status Date / Time ibuprofen [From Motrin IB] Allergy Unknown Verified 05/07/19 10:51 Physical Exam Vitals: Vital Signs Temp Pulse Pulse Resp BP BP Pulse Ox 05/07/19 16:00 98.3 F 99 16 143/66 100 05/07/19 14:46 90 22 118/61 98 05/07/19 12:55 93 20 131/80 99 05/07/19 11:11 92 22 132/72 97 05/07/19 10:22 97.9 F 84 22 129/71 98 Intake and Output 05/07/19 05/07/19 05/07/19 06:59 14:59 22:59 Intake Total 240 Balance 240 Intake: Oral 240 Other: Voiding Method Indwelling Catheter Weight 80 kg PHYSICAL EXAMINATION: GENERAL: The patient is alert and oriented x2, lethargic. HEENT: Pupils are round and equally reacting to light. EOMI. No scleral icterus. No conjunctival pallor. Normocephalic, atraumatic. No pharyngeal erythema. No thyromegaly. CARDIOVASCULAR: S1 and S2 present. No murmurs, rubs, or gallops. PULMONARY: Chest is clear to auscultation, no wheezing or crackles. ABDOMEN: Soft, nontender, nondistended, normoactive bowel sounds. No palpable organomegaly. MUSCULOSKELETAL: No joint swelling or deformity. EXTREMITIES: No cyanosis, clubbing, or pedal edema. NEUROLOGICAL: unable to completely assess does not appear to have any focal deficits SKIN: No rashes. Results CBC & Chem 7: 05/07/19 11:00 05/07/19 11:00 Labs: Abnormal Lab Results - Last 24 Hours (Table) 05/07/19 05/07/19 05/07/19 Range/Units 11:00 11:00 11:00 WBC 12.0 H (3.8-10.6) k/uL RBC 3.26 L (3.80-5.40) m/uL Hgb 10.3 L (11.4-16.0) gm/dL Hct 32.2 L (34.0-46.0) % Plt Count 592 H (150-450) k/uL Neutrophils # (Manual) 11.10 H (1.3-7.7) k/uL Lymphocytes # (Manual) 0.24 L (1.0-4.8) k/uL APTT 31.4 H (22.0-30.0) sec Sodium 133 L (137-145) mmol/L Potassium 5.4 H (3.5-5.1) mmol/L Chloride 95 L (98-107) mmol/L BUN 84 H (7-17) mg/dL Creatinine 2.68 H (0.52-1.04) mg/dL Glucose 274 H (74-99) mg/dL Plasma Lactic Acid Will (0.7-2.0) mmol/L Magnesium 2.9 H (1.6-2.3) mg/dL Alkaline Phosphatase 170 H (38-126) U/L Troponin I (0.000-0.034) ng/mL Total Protein 6.1 L (6.3-8.2) g/dL Albumin 3.1 L (3.5-5.0) g/dL Urine Appearance (Clear) Urine RBC (0-5) /hpf Urine WBC (0-5) /hpf Urine WBC Clumps (None) /hpf Ur Squamous Epith Cells (0-4) /hpf Urine Bacteria (None) /hpf Urine Mucus (None) /hpf 05/07/19 05/07/19 05/07/19 Range/Units 11:00 12:50 13:17 WBC (3.8-10.6) k/uL RBC (3.80-5.40) m/uL Hgb (11.4-16.0) gm/dL Hct (34.0-46.0) % Plt Count (150-450) k/uL Neutrophils # (Manual) (1.3-7.7) k/uL Lymphocytes # (Manual) (1.0-4.8) k/uL APTT (22.0-30.0) sec Sodium (137-145) mmol/L Potassium (3.5-5.1) mmol/L Chloride (98-107) mmol/L BUN (7-17) mg/dL Creatinine (0.52-1.04) mg/dL Glucose (74-99) mg/dL Plasma Lactic Acid Will 2.7 H* (0.7-2.0) mmol/L Magnesium (1.6-2.3) mg/dL Alkaline Phosphatase (38-126) U/L Troponin I 0.072 H* (0.000-0.034) ng/mL Total Protein (6.3-8.2) g/dL Albumin (3.5-5.0) g/dL Urine Appearance Bloody H (Clear) Urine RBC 25 H (0-5) /hpf Urine WBC 82 H (0-5) /hpf Urine WBC Clumps Few H (None) /hpf Ur Squamous Epith Cells 7 H (0-4) /hpf Urine Bacteria Many H (None) /hpf Urine Mucus Rare H (None) /hpf 05/07/19 Range/Units 16:44 WBC (3.8-10.6) k/uL RBC (3.80-5.40) m/uL Hgb (11.4-16.0) gm/dL Hct (34.0-46.0) % Plt Count (150-450) k/uL Neutrophils # (Manual) (1.3-7.7) k/uL Lymphocytes # (Manual) (1.0-4.8) k/uL APTT (22.0-30.0) sec Sodium (137-145) mmol/L Potassium (3.5-5.1) mmol/L Chloride (98-107) mmol/L BUN (7-17) mg/dL Creatinine (0.52-1.04) mg/dL Glucose (74-99) mg/dL Plasma Lactic Acid Will (0.7-2.0) mmol/L Magnesium (1.6-2.3) mg/dL Alkaline Phosphatase (38-126) U/L Troponin I 0.058 H* (0.000-0.034) ng/mL Total Protein (6.3-8.2) g/dL Albumin (3.5-5.0) g/dL Urine Appearance (Clear) Urine RBC (0-5) /hpf Urine WBC (0-5) /hpf Urine WBC Clumps (None) /hpf Ur Squamous Epith Cells (0-4) /hpf Urine Bacteria (None) /hpf Urine Mucus (None) /hpf Microbiology - Last 24 Hours (Table) 05/07/19 12:50 Urine Culture - Preliminary Urine,Voided Thrombosis Risk Factor Assmnt - Choose All That Apply Each Factor Represents 1 point: Sepsis (< 1month) Each Risk Factor Represents 3 Points: Age 75 years or older Other congenital or acquired thrombophilia - If yes, enter type in comment: No Each Risk Factor Represents 5 Points: Hip, pelvis, or leg fracture (< 1 month) Thrombosis Risk Factor Assessment Total Risk Factor Score: 9 Thrombosis Risk Factor Assessment Level: High Risk Assessment and Plan Plan: -possible upper GI bleed patient was started on Protonix which will be continued patient does have diarrhea. She can use to have diarrhea we'll obtain C. diff testing -Leukocytosis reactive in nature rather infection -Abnormal urine secondary to Ferrer catheter which was not replaced. My suspicion of UTI is low but if cultures are positive. Couldn't treat her with antibiotics -Severe dehydration -Acute renal failure secondary to prerenal azotemia from dehydration patient will be started on IV fluids -9 hypovolemic hyponatremia expected to improve with IV fluids -Mildly elevated troponin without any chest painand EKG changes secondary to acute renal failure. -Recent hip surgery on Lovenox as due to prophylaxis patient surgery was 3 weeks ago Lovenox will be held because of possibility of GI bleed -altered mental status toxic encephalopathy secondary to dehydration [place]- lactic acidosis secondary to intravascular depletion to be lactic acid tomorrow -Hypothyroidism -Gastroesophageal reflux disease
[2019-05-07] MEDS: PANTOPRAZOLE 40 MG/10 ML VIAL IV SCH (20:15)
[2019-05-07] MEDS: INSULIN ASPART (NovoLOG) 100 UNIT/ML VIAL SQ SCH (21:06)
[2019-05-07 21:23] LABS: Glucose,Whole Blood 150 mg/dL (75-99)
[2019-05-08] MEDS: ONDANSETRON 4 MG/2 ML VIAL IVP PRN ×2 (03:40→22:39)
[2019-05-08] MEDS: SODIUM CHLORIDE 0.9% 1,000 ML IV SCH ×2 (04:01→15:26)
[2019-05-08 06:05] LABS: HCT 28.9 % (34.0-46.0); Hypochromasia Slight; MCH 31.1 pg (25.0-35.0); MCHC 31.1 g/dL (31.0-37.0); MCV 100.1 fL (80.0-100.0); Macrocytosis Slight; Platelet Count 461 k/uL (150-450); RBC 2.89 m/uL (3.80-5.40); RDW 14.7 % (11.5-15.5); WBC 10.4 k/uL (3.8-10.6)
[2019-05-08 06:15] LABS: Calcium 8.6 mg/dL (8.4-10.2)
[2019-05-08] MEDS: INSULIN ASPART (NovoLOG) 100 UNIT/ML VIAL SQ SCH ×4 (06:21→22:20)
[2019-05-08 06:25] LABS: Glucose,Whole Blood 132 mg/dL (75-99)
[2019-05-08] MEDS: amLODIPine 10 MG TAB PO SCH (09:18)
[2019-05-08] MEDS: PANTOPRAZOLE 40 MG/10 ML VIAL IV SCH ×2 (09:18→21:05)
[2019-05-08] MEDS: METOPROLOL TARTRATE 12.5 MG TAB PO SCH (09:18)
--- NOTE | 2019-05-08 10:44 | P.PN ---
Subjective 68-year-old admitted for possibly of upper GI bleed although patient is an have any GI bleed here patient doesn't have any diarrhea today. Patient is being treated for acute renal failure. Patient will be continued on IV fluids. Patient remains lethargic Ferrer catheter was replaced. Leukocytosis improved. review of systems: Unable to obtain All inpatient medications were reviewed and appropriate changes in these medications as dictated in the interval history and assessment and plan. Objective - Vital Signs Vital signs: Vital Signs Temp 98.1 F 05/08/19 08:00 Pulse 87 05/08/19 08:00 Resp 16 05/08/19 08:00 BP 124/61 05/08/19 08:00 Pulse Ox 100 05/08/19 08:00 Intake & Output 05/07/19 05/08/19 05/08/19 18:59 06:59 18:59 Intake Total 240 240 Output Total 800 Balance 240 -800 240 Weight 80 kg 83 kg Intake: Oral 240 240 Output: Urine 800 Other: Voiding Method Indwelling Catheter Indwelling Catheter Indwelling Catheter # Bowel Movements 1 - Exam PHYSICAL EXAMINATION: GENERAL: The patient is alert and oriented x2, lethargic. HEENT: Pupils are round and equally reacting to light. EOMI. No scleral icterus. No conjunctival pallor. Normocephalic, atraumatic. No pharyngeal erythema. No thyromegaly. CARDIOVASCULAR: S1 and S2 present. No murmurs, rubs, or gallops. PULMONARY: Chest is clear to auscultation, no wheezing or crackles. ABDOMEN: Soft, nontender, nondistended, normoactive bowel sounds. No palpable organomegaly. MUSCULOSKELETAL: No joint swelling or deformity. EXTREMITIES: No cyanosis, clubbing, or pedal edema. NEUROLOGICAL: unable to completely assess does not appear to have any focal deficits SKIN: No rashes. - Labs CBC & Chem 7: 05/08/19 05:50 05/08/19 05:50 Labs: Abnormal Lab Results - Last 24 Hours (Table) 05/07/19 05/07/19 05/07/19 Range/Units 11:00 11:00 11:00 WBC 12.0 H (3.8-10.6) k/uL RBC 3.26 L (3.80-5.40) m/uL Hgb 10.3 L (11.4-16.0) gm/dL Hct 32.2 L (34.0-46.0) % MCV (80.0-100.0) fL Plt Count 592 H (150-450) k/uL Neutrophils # (Manual) 11.10 H (1.3-7.7) k/uL Lymphocytes # (Manual) 0.24 L (1.0-4.8) k/uL APTT 31.4 H (22.0-30.0) sec Sodium 133 L (137-145) mmol/L Potassium 5.4 H (3.5-5.1) mmol/L Chloride 95 L (98-107) mmol/L Carbon Dioxide (22-30) mmol/L BUN 84 H (7-17) mg/dL Creatinine 2.68 H (0.52-1.04) mg/dL Glucose 274 H (74-99) mg/dL POC Glucose (mg/dL) (75-99) mg/dL Plasma Lactic Acid Will (0.7-2.0) mmol/L Magnesium 2.9 H (1.6-2.3) mg/dL Alkaline Phosphatase 170 H (38-126) U/L Troponin I (0.000-0.034) ng/mL Total Protein 6.1 L (6.3-8.2) g/dL Albumin 3.1 L (3.5-5.0) g/dL Urine Appearance (Clear) Urine RBC (0-5) /hpf Urine WBC (0-5) /hpf Urine WBC Clumps (None) /hpf Ur Squamous Epith Cells (0-4) /hpf Urine Bacteria (None) /hpf Urine Mucus (None) /hpf 05/07/19 05/07/19 05/07/19 Range/Units 11:00 12:50 13:17 WBC (3.8-10.6) k/uL RBC (3.80-5.40) m/uL Hgb (11.4-16.0) gm/dL Hct (34.0-46.0) % MCV (80.0-100.0) fL Plt Count (150-450) k/uL Neutrophils # (Manual) (1.3-7.7) k/uL Lymphocytes # (Manual) (1.0-4.8) k/uL APTT (22.0-30.0) sec Sodium (137-145) mmol/L Potassium (3.5-5.1) mmol/L Chloride (98-107) mmol/L Carbon Dioxide (22-30) mmol/L BUN (7-17) mg/dL Creatinine (0.52-1.04) mg/dL Glucose (74-99) mg/dL POC Glucose (mg/dL) (75-99) mg/dL Plasma Lactic Acid Will 2.7 H* (0.7-2.0) mmol/L Magnesium (1.6-2.3) mg/dL Alkaline Phosphatase (38-126) U/L Troponin I 0.072 H* (0.000-0.034) ng/mL Total Protein (6.3-8.2) g/dL Albumin (3.5-5.0) g/dL Urine Appearance Bloody H (Clear) Urine RBC 25 H (0-5) /hpf Urine WBC 82 H (0-5) /hpf Urine WBC Clumps Few H (None) /hpf Ur Squamous Epith Cells 7 H (0-4) /hpf Urine Bacteria Many H (None) /hpf Urine Mucus Rare H (None) /hpf 05/07/19 05/07/19 05/07/19 Range/Units 16:44 21:02 22:27 WBC (3.8-10.6) k/uL RBC (3.80-5.40) m/uL Hgb (11.4-16.0) gm/dL Hct (34.0-46.0) % MCV (80.0-100.0) fL Plt Count (150-450) k/uL Neutrophils # (Manual) (1.3-7.7) k/uL Lymphocytes # (Manual) (1.0-4.8) k/uL APTT (22.0-30.0) sec Sodium (137-145) mmol/L Potassium (3.5-5.1) mmol/L Chloride (98-107) mmol/L Carbon Dioxide (22-30) mmol/L BUN (7-17) mg/dL Creatinine (0.52-1.04) mg/dL Glucose (74-99) mg/dL POC Glucose (mg/dL) 150 H (75-99) mg/dL Plasma Lactic Acid Will (0.7-2.0) mmol/L Magnesium (1.6-2.3) mg/dL Alkaline Phosphatase (38-126) U/L Troponin I 0.058 H* 0.048 H* (0.000-0.034) ng/mL Total Protein (6.3-8.2) g/dL Albumin (3.5-5.0) g/dL Urine Appearance (Clear) Urine RBC (0-5) /hpf Urine WBC (0-5) /hpf Urine WBC Clumps (None) /hpf Ur Squamous Epith Cells (0-4) /hpf Urine Bacteria (None) /hpf Urine Mucus (None) /hpf 05/08/19 05/08/19 05/08/19 Range/Units 05:50 05:50 06:19 WBC (3.8-10.6) k/uL RBC 2.89 L (3.80-5.40) m/uL Hgb 9.0 L (11.4-16.0) gm/dL Hct 28.9 L (34.0-46.0) % MCV 100.1 H (80.0-100.0) fL Plt Count 461 H (150-450) k/uL Neutrophils # (Manual) (1.3-7.7) k/uL Lymphocytes # (Manual) (1.0-4.8) k/uL APTT (22.0-30.0) sec Sodium (137-145) mmol/L Potassium (3.5-5.1) mmol/L Chloride (98-107) mmol/L Carbon Dioxide 21 L (22-30) mmol/L BUN 73 H (7-17) mg/dL Creatinine 2.25 H (0.52-1.04) mg/dL Glucose 131 H (74-99) mg/dL POC Glucose (mg/dL) 132 H (75-99) mg/dL Plasma Lactic Acid Will (0.7-2.0) mmol/L Magnesium (1.6-2.3) mg/dL Alkaline Phosphatase (38-126) U/L Troponin I (0.000-0.034) ng/mL Total Protein (6.3-8.2) g/dL Albumin (3.5-5.0) g/dL Urine Appearance (Clear) Urine RBC (0-5) /hpf Urine WBC (0-5) /hpf Urine WBC Clumps (None) /hpf Ur Squamous Epith Cells (0-4) /hpf Urine Bacteria (None) /hpf Urine Mucus (None) /hpf Microbiology - Last 24 Hours (Table) 05/07/19 12:50 Urine Culture - Preliminary Urine,Voided Assessment and Plan Plan: -possible upper GI bleed patient was started on Protonix , so far there is no evidence of GI bleed at this time. She can use to have diarrhea we'll obtain C. diff testing -Leukocytosis reactive in nature rather infectionimproved -Abnormal urine secondary to Ferrer catheter which was not replaced. My suspicion of UTI is low but if cultures are positive.patient will be treated with antibiotics -Severe dehydrationAmi improving with IV fluids -Acute renal failure secondary to prerenal azotemia from dehydration patient will be started on IV fluids -9 hypovolemic hyponatremia expected to improve with IV fluidsimproved -Mildly elevated troponin without any chest painand EKG changes secondary to acute renal failure. -Recent hip surgery on Lovenox as due to prophylaxis patient surgery was 3 weeks ago Lovenox will be held because of possibility of GI bleed -altered mental status toxic encephalopathy secondary to dehydration [place]- lactic acidosis secondary to intravascular depletion to be lactic acid tomorrow -Hypothyroidism -Gastroesophageal reflux disease
[2019-05-08 12:06] LABS: Glucose,Whole Blood 126 mg/dL (75-99)
[2019-05-08 17:35] LABS: Glucose,Whole Blood 130 mg/dL (75-99)
[2019-05-08 21:37] LABS: Glucose,Whole Blood 161 mg/dL (75-99)
[2019-05-09] MEDS: SODIUM CHLORIDE 0.9% 1,000 ML IV SCH ×3 (01:16→19:52)
[2019-05-09 07:17] LABS: Glucose,Whole Blood 211 mg/dL (75-99)
[2019-05-09] MEDS: ONDANSETRON 4 MG/2 ML VIAL IVP PRN ×2 (07:54→21:56)
[2019-05-09] MEDS: PANTOPRAZOLE 40 MG/10 ML VIAL IV SCH ×2 (08:00→21:09)
[2019-05-09] MEDS: METOPROLOL TARTRATE 12.5 MG TAB PO SCH (08:00)
[2019-05-09] MEDS: amLODIPine 10 MG TAB PO SCH (08:00)
[2019-05-09 08:34] LABS: Calcium 8.7 mg/dL (8.4-10.2); Potassium 3.9 mmol/L (3.5-5.1)
[2019-05-09] MEDS: INSULIN ASPART (NovoLOG) 100 UNIT/ML VIAL SQ SCH ×4 (09:37→21:08)
[2019-05-09 12:52] LABS: Glucose,Whole Blood 139 mg/dL (75-99)
[2019-05-09 17:31] LABS: Glucose,Whole Blood 191 mg/dL (75-99)
[2019-05-09 21:02] LABS: Glucose,Whole Blood 145 mg/dL (75-99)
--- NOTE | 2019-05-10 00:19 | P.PN ---
Subjective Progress Note Date: 05/09/19 Principal diagnosis: 78-year-old admitted for possibly of upper GI bleed although patient is not having any GI bleed here. patient doesn't have any diarrhea today. Patient is being treated for acute renal failure. Patient will be continued on IV fluids. Patient remains lethargic Ferrer catheter was replaced. Leukocytosis improved. review of systems: Unable to obtain 05/09/2019 Patient is sitting up in bed sleeping but easily arousable to loud voice. Patient is lethargic and nods in and out of a sleep within seconds of talking with her. Patient had a urine culture that shows escherichia coli, providencia stuartii. Patient was placed on IV rocephin. Today's creatinine is 1.56 and is being monitored closely. guarded prognosis. Objective - Vital Signs Vital signs: Vital Signs Temp 98.6 F 05/09/19 22:50 Pulse 86 05/09/19 22:50 Resp 20 05/09/19 22:50 BP 151/70 05/09/19 22:50 Pulse Ox 98 05/09/19 22:50 Intake & Output 05/09/19 05/09/19 05/10/19 06:59 18:59 06:59 Intake Total 500 1170 200 Output Total 1200 1150 1 Balance -700 20 199 Intake: Oral 500 1170 200 Output: Urine 1200 1150 Stool 1 Other: Voiding Method Indwelling Catheter Indwelling Catheter # Bowel Movements 2 - Exam PHYSICAL EXAMINATION: GENERAL: The patient is alert and oriented x2, lethargic. HEENT: Pupils are round and equally reacting to light. EOMI. No scleral icterus. No conjunctival pallor. Normocephalic, atraumatic. No pharyngeal erythema. No thyromegaly. CARDIOVASCULAR: S1 and S2 present. No murmurs, rubs, or gallops. PULMONARY: Chest is clear to auscultation, no wheezing or crackles. ABDOMEN: Soft, nontender, nondistended, normoactive bowel sounds. No palpable organomegaly. MUSCULOSKELETAL: No joint swelling or deformity. EXTREMITIES: No cyanosis, clubbing, or pedal edema. NEUROLOGICAL: unable to completely assess does not appear to have any focal deficits SKIN: No rashes. Lower lip on the right side is dried and crusted with scabbing noted. - Labs CBC & Chem 7: 05/08/19 05:50 05/09/19 07:42 Labs: Abnormal Lab Results - Last 24 Hours (Table) 05/09/19 05/09/19 05/09/19 Range/Units 07:07 07:42 12:25 Chloride 110 H (98-107) mmol/L BUN 50 H (7-17) mg/dL Creatinine 1.56 H (0.52-1.04) mg/dL Glucose 172 H (74-99) mg/dL POC Glucose (mg/dL) 211 H 139 H (75-99) mg/dL 05/09/19 05/09/19 Range/Units 17:28 21:00 Chloride (98-107) mmol/L BUN (7-17) mg/dL Creatinine (0.52-1.04) mg/dL Glucose (74-99) mg/dL POC Glucose (mg/dL) 191 H 145 H (75-99) mg/dL Microbiology - Last 24 Hours (Table) 05/07/19 12:50 Urine Culture - Preliminary Urine,Voided Escherichia coli Providencia stuartii Assessment and Plan Assessment: possible upper GI bleed patient was started on Protonix , so far there is no evidence of GI bleed at this time. If She continues to have diarrhea we'll obtain C. diff testing -Leukocytosis reactive in nature rather infection improved; WBC is 10.4 -Abnormal urine secondary to Ferrer catheter which was not replaced. My suspicion of UTI is low but if cultures are positive.patient will be treated with antibiotics -Severe dehydration Ami improving with IV fluids -Acute renal failure secondary to prerenal azotemia from dehydration patient will be started on IV fluids. Cr is trending down and currently is 1.56 -9 hypovolemic hyponatremia expected to improve with IV fluids; improved. Sodium is 141 -Mildly elevated troponin without any chest pain and EKG changes secondary to acute renal failure. -Recent hip surgery on Lovenox as due to prophylaxis. patient surgery was 3 weeks ago Lovenox will be held because of possibility of GI bleed -altered mental status toxic encephalopathy secondary to dehydration -lactic acidosis secondary to intravascular depletion; repeat lactic acid is 0.7 -Hypothyroidism -Gastroesophageal reflux disease Recommendations and discussion: Recommend continuing current medication management and symptomatic treatment. Patient will likely return to the ECF on a course of antibiotics. Guarded prognosis. PT/OT are following. Further recommendations to follow. Possible discharge to ECF in 24-48 hours.
[2019-05-10] MEDS: SODIUM CHLORIDE 0.9% 1,000 ML IV SCH ×2 (06:17→17:27)
[2019-05-10 07:19] LABS: Glucose,Whole Blood 155 mg/dL (75-99)
[2019-05-10] MEDS: INSULIN ASPART (NovoLOG) 100 UNIT/ML VIAL SQ SCH ×4 (07:35→21:04)
[2019-05-10] MEDS: PANTOPRAZOLE 40 MG/10 ML VIAL IV SCH ×2 (09:14→21:05)
[2019-05-10] MEDS: METOPROLOL TARTRATE 12.5 MG TAB PO SCH (09:14)
[2019-05-10] MEDS: amLODIPine 10 MG TAB PO SCH (09:14)
[2019-05-10 10:43] LABS: Calcium 8.8 mg/dL (8.4-10.2); Potassium 3.5 mmol/L (3.5-5.1)
[2019-05-10 12:50] LABS: Glucose,Whole Blood 186 mg/dL (75-99)
[2019-05-10 16:37] LABS: Appearance,Urine Clear (Clear); Bacteria,Urine Rare /hpf; Bilirubin,Urine Negative (Negative); Blood,Urine Trace (Negative); Color,Urine Yellow; Glucose,Urine (UA) 3+ (Negative); Ketones,Urine Negative (Negative); Leukocyte Esterase,Urine Moderate (Negative); Mucus,Urine Rare /hpf; Nitrite,Urine Negative (Negative); PH, Urine 5.5 (5.0-8.0); Protein,Urine 1+ (Negative); RBC,Urine 1 /hpf (0-5); Specific Gravity,Urine 1.013 (1.001-1.035); Squamous Epithelial Cell,Urine <1 /hpf (0-4); Urobilinogen,Urine <2.0 mg/dL (<2.0); WBC,Urine 27 /hpf (0-5)
--- NOTE | 2019-05-10 16:59 | P.PN ---
Subjective Progress Note Date: 05/10/19 Principal diagnosis: 78-year-old admitted for possibly of upper GI bleed although patient is not having any GI bleed here. patient doesn't have any diarrhea today. Patient is being treated for acute renal failure. Patient will be continued on IV fluids. Patient remains lethargic Ferrer catheter was replaced. Leukocytosis improved. review of systems: Unable to obtain 05/09/2019 Patient is sitting up in bed sleeping but easily arousable to loud voice. Patient is lethargic and nods in and out of a sleep within seconds of talking with her. Patient had a urine culture that shows escherichia coli, providencia stuartii. Patient was placed on IV rocephin. Today's creatinine is 1.56 and is being monitored closely. guarded prognosis. 05/10/2019 Patient is sitting up in bed and is a little more awake today but still lethargic at times. Infectious disease was consulted. Repeat urinalysis with urine culture was ordered and is currently pending. Spoke to the nurse and she stated urine was sent and awaiting results. Infectious disease recommendations changed IV antibiotic therapy to cefepime and is following closely. Current creatinine is 1.03. Will continue to monitor closely. Guarded prognosis. Objective - Vital Signs Vital signs: Vital Signs Temp 97.3 F L 05/10/19 04:45 Pulse 90 05/10/19 09:00 Resp 20 05/10/19 04:45 BP 143/84 05/10/19 09:00 Pulse Ox 95 05/10/19 04:45 Intake & Output 05/09/19 05/10/19 05/10/19 18:59 06:59 18:59 Intake Total 1170 400 Output Total 1150 801 600 Balance 20 -401 -600 Intake: Oral 1170 400 Output: Urine 1150 800 600 Stool 1 Other: Voiding Method Indwelling Catheter Indwelling Catheter # Bowel Movements 2 1 1 - Exam PHYSICAL EXAMINATION: GENERAL: The patient is alert and oriented x2, lethargic. Patient is hard of hearing and does not have hearing aids in at the time of exam. HEENT: Pupils are round and equally reacting to light. EOMI. No scleral icterus. No conjunctival pallor. Normocephalic, atraumatic. No pharyngeal erythema. No thyromegaly. CARDIOVASCULAR: S1 and S2 present. No murmurs, rubs, or gallops. PULMONARY: Chest is clear to auscultation, no wheezing or crackles. ABDOMEN: Soft, nontender, nondistended, normoactive bowel sounds. No palpable organomegaly. MUSCULOSKELETAL: No joint swelling or deformity. EXTREMITIES: No cyanosis, clubbing, or pedal edema. NEUROLOGICAL: unable to completely assess does not appear to have any focal deficits SKIN: No rashes. Lower lip on the right side is dried and crusted with scabbing noted. Slightly improved. - Labs CBC & Chem 7: 05/08/19 05:50 05/10/19 10:10 Labs: Abnormal Lab Results - Last 24 Hours (Table) 05/09/19 05/09/19 05/10/19 Range/Units 17:28 21:00 07:12 Chloride (98-107) mmol/L BUN (7-17) mg/dL Glucose (74-99) mg/dL POC Glucose (mg/dL) 191 H 145 H 155 H (75-99) mg/dL Urine Protein (Negative) Urine Glucose (UA) (Negative) Urine Blood (Negative) Ur Leukocyte Esterase (Negative) Urine WBC (0-5) /hpf Urine Bacteria (None) /hpf Urine Mucus (None) /hpf 05/10/19 05/10/19 05/10/19 Range/Units 10:10 12:30 13:30 Chloride 112 H (98-107) mmol/L BUN 26 H (7-17) mg/dL Glucose 208 H (74-99) mg/dL POC Glucose (mg/dL) 186 H (75-99) mg/dL Urine Protein 1+ H (Negative) Urine Glucose (UA) 3+ H (Negative) Urine Blood Trace H (Negative) Ur Leukocyte Esterase Moderate H (Negative) Urine WBC 27 H (0-5) /hpf Urine Bacteria Rare H (None) /hpf Urine Mucus Rare H (None) /hpf Microbiology - Last 24 Hours (Table) 05/07/19 12:50 Urine Culture - Preliminary Urine,Voided Escherichia coli Providencia stuartii Assessment and Plan Assessment: possible upper GI bleed patient was started on Protonix , so far there is no evidence of GI bleed at this time. If She continues to have diarrhea we'll obtain C. diff testing -Leukocytosis reactive in nature rather infection improved; WBC is 10.4 -Abnormal urine secondary to Ferrer catheter which was not replaced. My suspicion of UTI is low but if cultures are positive.patient will be treated with antibiotics. Repeat urinalysis with urine culture was ordered per infectious disease recommendations. IV antibiotics was changed to cefepime. Awaiting urine and culture results. -Severe dehydration Ami improving with IV fluids -Acute renal failure secondary to prerenal azotemia from dehydration patient will be started on IV fluids. Cr is trending down and currently is 1.03 -9 hypovolemic hyponatremia expected to improve with IV fluids; improved. Sodium is 141 -Mildly elevated troponin without any chest pain and EKG changes secondary to acute renal failure. -Recent hip surgery on Lovenox as due to prophylaxis. patient surgery was 3 weeks ago Lovenox will be held because of possibility of GI bleed -altered mental status toxic encephalopathy secondary to dehydration -lactic acidosis secondary to intravascular depletion; repeat lactic acid is 0.7 -Hypothyroidism -Gastroesophageal reflux disease Recommendations and discussion: Recommend continuing current medication management and symptomatic treatment. Infectious disease is now following closely. Patient will likely return to the ECF on a course of antibiotics. Guarded prognosis. PT/OT are following. Further recommendations to follow. Possible discharge to ECF in 24-48 hours.
[2019-05-10 17:10] LABS: Glucose,Whole Blood 144 mg/dL (75-99)
[2019-05-10 20:25] LABS: Glucose,Whole Blood 161 mg/dL (75-99)
[2019-05-10] MEDS: CEFEPIME 2 GM in SODIUM CHLORIDE 0.9% 100 ML IVPB SCH (21:05)
--- NOTE | 2019-05-11 00:52 | P.CONS ---
History of Present Illness - Reason for Consult Consult date: 05/10/19 Urinary tract infection Requesting physician: Arely Mills - Chief Complaint Weakness lethargy x few days - History of Present Illness Patient is a 78-year-old female who is a [facility] resident patient has been sent to ER at [facility] for evaluation of weakness lethargy and some mental status changes patient did have chronic indwelling Ferrer catheter it is not very clear when the last time it was changed, patient was evaluated by the ER physician patient did have a UA obtained from old Ferrer catheter which was positive for it gets was subsequently changed patient was started on Rocephin she did have elevated white count 12,000, infectious disease was consulted today after the patient was noticed to be growing resistant bacter ia in her urine cultures Most of the information has been obtained from review the chart as the patient herself evaluated good historian, though denies any headaches no chest pain upon pain or any diarrhea Review of Systems Positive points has been mentioned in HPI complete review could not be obtained because of the patient mental status Past Medical History Past Medical History: Diabetes Mellitus, GERD/Reflux, Hearing Disorder / Deafness, Hypertension, Osteoarthritis (OA), Renal Disease, Thyroid Disorder Additional Past Medical History / Comment(s): acute posthemorrhagic anemia,abnormal uterine and vaginal bleeding, Leiomyoma of uterus, tachycardia, Generalized muscle weakness, Chronic kidney disease stage 2 (mild), History of Any Multi-Drug Resistant Organisms: None Reported Past Surgical History: Appendectomy, Hysterectomy Additional Past Surgical History / Comment(s): fistula L upper arm Past Anesthesia/Blood Transfusion Reactions: No Reported Reaction Smoking Status: Former smoker - Past Family History Mother History Unknown: Yes Father History Unknown: Yes Medications and Allergies Home Medications Medication Instructions Recorded Confirmed Type glipiZIDE [Glucotrol] 5 mg PO AC-BID 05/13/16 05/07/19 History Acetaminophen Tab [Tylenol] 500 mg PO Q6H PRN 06/22/16 05/07/19 History Losartan [Cozaar] 100 mg PO DAILY 04/03/17 05/07/19 History Omeprazole [PriLOSEC] 20 mg PO AC-BRKFST 04/03/17 05/07/19 History Allopurinol [Zyloprim] 100 mg PO BID 04/22/19 05/07/19 History Fenofibrate Nanocrystallized 145 mg PO HS 04/22/19 05/07/19 History [Tricor] Nystatin 100,000 Unit/gm Powd 1 applic TOPICAL DAILY PRN 04/22/19 05/07/19 History [Mycostatin Powder] Sennosides-Docusate Sodium 2 tab PO HS 04/22/19 05/07/19 History [Senokot-S] Enoxaparin Sodium [Lovenox] 30 mg SQ DAILY #28 syringe 04/26/19 05/07/19 Rx Metoprolol Tartrate [Lopressor] 12.5 mg PO DAILY #90 tab 04/26/19 05/07/19 Rx amLODIPine [Norvasc] 10 mg PO DAILY tab 04/26/19 05/07/19 Rx Hydrocodone/Acetaminophen [Rigby 1 tab PO Q4H PRN 05/07/19 05/07/19 History 5-325] Allergies Allergy/AdvReac Type Severity Reaction Status Date / Time ibuprofen [From Motrin IB] Allergy Unknown Verified 05/07/19 10:51 Physical Exam Vitals: Vital Signs Temp Pulse Resp BP Pulse Ox 05/10/19 09:00 90 143/84 05/10/19 04:45 97.3 F L 85 20 108/57 95 05/09/19 22:50 98.6 F 86 20 151/70 98 05/09/19 12:26 97.1 F L 79 18 132/63 99 Intake and Output 05/09/19 05/10/19 05/10/19 22:59 06:59 14:59 Intake Total 200 200 Output Total 451 800 Balance -251 -600 Intake: Oral 200 200 Output: Urine 450 800 Stool 1 Other: Voiding Method Indwelling Catheter # Bowel Movements 2 1 GENERAL DESCRIPTION: Elderly female lying in bed, no distress. No tachypnea or accessory muscle of respiration use. HEENT: Shows Pallor , no scleral icterus. Oral mucous membrane is dry. No pharyngeal erythema or thrush NECK: Trachea central, no thyromegaly. LUNGS: Unlabored breathing. Clear to auscultation anteriorly. No wheeze or crackle. HEART: S1, S2, regular rate and rhythm. No loud murmur ABDOMEN: Soft, no tenderness , guarding or rigidity, no organomegaly EXTREMITIES: No edema of feet. SKIN: No rash, no masses palpable. NEUROLOGICAL: The patient is awake, alert, oriented x1, mood and affect normal. Results CBC & Chem 7: 05/08/19 05:50 05/10/19 10:10 Labs: Abnormal Lab Results - Last 24 Hours (Table) 05/09/19 05/09/19 05/09/19 Range/Units 12:25 17:28 21:00 Chloride (98-107) mmol/L BUN (7-17) mg/dL Glucose (74-99) mg/dL POC Glucose (mg/dL) 139 H 191 H 145 H (75-99) mg/dL 05/10/19 05/10/19 Range/Units 07:12 10:10 Chloride 112 H (98-107) mmol/L BUN 26 H (7-17) mg/dL Glucose 208 H (74-99) mg/dL POC Glucose (mg/dL) 155 H (75-99) mg/dL Microbiology - Last 24 Hours (Table) 05/07/19 12:50 Urine Culture - Preliminary Urine,Voided Escherichia coli Providencia stuartii Assessment and Plan Assessment: 1-patient admitted to the hospital with weakness lethargy mental status changes and this patient did have mildly elevated white count and a positive UA however the sample was collected from a indwelling Ferrer catheter is not very careful, the catheter was there and a question of possible Ferrer colonization versus acut e UTI which is currently growing multiple pathogen with resistant pathogen (1) Urinary tract infection Current Visit: Yes Status: Acute Code(s): N39.0 - URINARY TRACT INFECTION, SITE NOT SPECIFIED SNOMED Code(s): 49531238 (2) Pseudomonas aeruginosa infection Current Visit: Yes Status: Acute Code(s): A49.8 - OTHER BACTERIAL INFECTIONS OF UNSPECIFIED SITE SNOMED Code(s): 44924051 Plan: 1-discontinue the Rocephin 2-we'll obtain a UA and culture from the new Ferrer catheter 3-start the patient on cefepime 2 g every 12 hours 4-gentle IV fluid we will follow on clinical condition and culture to further adjust medication if needed Thank you for this consultation will follow this patient along with you Time with Patient: Greater than 30
[2019-05-11] MEDS: SODIUM CHLORIDE 0.9% 1,000 ML IV SCH ×2 (02:54→09:44)
[2019-05-11] MEDS: ONDANSETRON 4 MG/2 ML VIAL IVP PRN ×3 (05:43→23:45)
[2019-05-11 07:19] LABS: Glucose,Whole Blood 177 mg/dL (75-99)
[2019-05-11] MEDS: INSULIN ASPART (NovoLOG) 100 UNIT/ML VIAL SQ SCH ×4 (07:48→21:48)
[2019-05-11] MEDS: CEFEPIME 2 GM in SODIUM CHLORIDE 0.9% 100 ML IVPB SCH ×2 (07:49→20:35)
[2019-05-11] MEDS: amLODIPine 10 MG TAB PO SCH (07:49)
[2019-05-11] MEDS: METOPROLOL TARTRATE 12.5 MG TAB PO SCH (07:49)
[2019-05-11] MEDS: PANTOPRAZOLE 40 MG/10 ML VIAL IV SCH ×2 (07:50→20:35)
[2019-05-11 08:25] LABS: Calcium 9.1 mg/dL (8.4-10.2); Potassium 3.4 mmol/L (3.5-5.1)
[2019-05-11 08:37] LABS: Basophils % (A) 0 %; Eosinophils % (A) 0 %; HCT 27.8 % (34.0-46.0); HGB 8.9 gm/dL (11.4-16.0); Hypochromasia Slight; Lymphocytes # (A) 0.3 k/uL (1.0-4.8); Lymphocytes % (A) 4 %; MCH 31.3 pg (25.0-35.0); MCV 97.9 fL (80.0-100.0); Mean Platelet Volume 7.3; Monocytes # (A) 0.5 k/uL (0-1.0); Monocytes % (A) 6 %; Neutrophils % (A) 85 %; Platelet Count 364 k/uL (150-450); RBC 2.83 m/uL (3.80-5.40); RDW 15.1 % (11.5-15.5); WBC 8.2 k/uL (3.8-10.6)
--- NOTE | 2019-05-11 08:41 | XR ---
EXAMINATION TYPE: XR chest 2V DATE OF EXAM: 05/11/2019 HISTORY: Pneumonia. REFERENCE: Previous study dated 04/23/2019. FINDINGS: There is worsening bibasilar airspace disease. There are bilateral effusions. There is unde rlying COPD. The heart is mildly enlarged. IMPRESSION: WORSENING BIBASILAR AIRSPACE DISEASE WITH CONCOMITANT EFFUSIONS.
[2019-05-11 11:53] LABS: Glucose,Whole Blood 138 mg/dL (75-99)
[2019-05-11] MEDS ORDERED: POTASSIUM CHLORIDE ER 20 MEQ TAB.ER PO STA (12:05)
[2019-05-11] MEDS ORDERED: SODIUM CHLORIDE 0.9% 1,000 ML IV SCH (12:15)
[2019-05-11 14:02] VITALS: BMI 27.8
[2019-05-11] MEDS ORDERED: FUROSEMIDE 10 MG/ML 2 ML VIAL IV ONE (14:42)
--- NOTE | 2019-05-11 14:47 | P.PN ---
Subjective 78-year-old admitted for possibly of upper GI bleed although patient is not having any GI bleed here. patient doesn't have any diarrhea today. Patient is being treated for acute renal failure. Patient will be continued on IV fluids. Patient remains lethargic Ferrer catheter was replaced. Leukocytosis improved. review of systems: Unable to obtain 05/09/2019 Patient is sitting up in bed sleeping but easily arousable to loud voice. Patient is lethargic and nods in and out of a sleep within seconds of talking with her. Patient had a urine culture that shows escherichia coli, providencia stuartii. Patient was placed on IV rocephin. Today's creatinine is 1.56 and is being monitored closely. guarded prognosis. 05/10/2019 Patient is sitting up in bed and is a little more awake today but still lethargic at times. Infectious disease was consulted. Repeat urinalysis with urine culture was ordered and is currently pending. Spoke to the nurse and she stated urine was sent and awaiting results. Infectious disease recommendations changed IV antibiotic therapy to cefepime and is following closely. Current creatinine is 1.03. Will continue to monitor closely. Guarded prognosis. 05/11/2019 Patient urine cultures are positive for multiple bacteria including E. coli, Providentia, Morganella, Pseudomonas aeruginosa, patient is presently on cefepime this appears to be secondary to Ferrer catheter that Ferrer catheter was replaced and patient has a new Ferrer catheter repeat urine cultures are being obtained plan is to continue the antibiotic if the cultures are remains negative repeat one sample Monday patient will not require any antibiotics. Patient chest x-ray showing bilateral pleural effusions IV fluids were dyspnea patient will be given a dose of Lasix my suspicion is low for pneumonia. I do not believe patient is septic at this time.. Objective - Vital Signs Vital signs: Vital Signs Temp 97.9 F 05/11/19 05:55 Pulse 90 05/11/19 05:55 Resp 16 05/11/19 05:55 BP 156/67 05/11/19 05:55 Pulse Ox 96 05/11/19 05:55 Intake & Output 05/10/19 05/11/19 05/11/19 18:59 06:59 18:59 Intake Total 200 Output Total 1000 750 Balance -1000 -750 200 Weight 83 kg Intake: Oral 200 Output: Urine 1000 750 Other: Voiding Method Indwelling Catheter # Bowel Movements 1 2 3 - Exam PHYSICAL EXAMINATION: GENERAL: The patient is alert and oriented x2-3, not lethargic looks much better today compared to admission awake talking with baseline function and is extremely poor and bedbound HEENT: Pupils are round and equally reacting to light. EOMI. No scleral icterus. No conjunctival pallor. Normocephalic, atraumatic. No pharyngeal erythema. No thyromegaly. CARDIOVASCULAR: S1 and S2 present. No murmurs, rubs, or gallops. PULMONARY: Chest is clear to auscultation, no wheezing or crackles. ABDOMEN: Soft, nontender, nondistended, normoactive bowel sounds. No palpable organomegaly. MUSCULOSKELETAL: No joint swelling or deformity. EXTREMITIES: No cyanosis, clubbing, or pedal edema. NEUROLOGICAL: No new focal neurological deficits but does have generalized weakness and bedbound SKIN: No rashes. - Labs CBC & Chem 7: 05/11/19 07:54 05/11/19 07:54 Labs: Abnormal Lab Results - Last 24 Hours (Table) 05/10/19 05/10/19 05/10/19 Range/Units 13:30 17:08 20:24 RBC (3.80-5.40) m/uL Hgb (11.4-16.0) gm/dL Hct (34.0-46.0) % Lymphocytes # (1.0-4.8) k/uL Potassium (3.5-5.1) mmol/L Chloride (98-107) mmol/L BUN (7-17) mg/dL Glucose (74-99) mg/dL POC Glucose (mg/dL) 144 H 161 H (75-99) mg/dL Urine Protein 1+ H (Negative) Urine Glucose (UA) 3+ H (Negative) Urine Blood Trace H (Negative) Ur Leukocyte Esterase Moderate H (Negative) Urine WBC 27 H (0-5) /hpf Urine Bacteria Rare H (None) /hpf Urine Mucus Rare H (None) /hpf 05/11/19 05/11/19 05/11/19 Range/Units 07:02 07:54 07:54 RBC 2.83 L (3.80-5.40) m/uL Hgb 8.9 L (11.4-16.0) gm/dL Hct 27.8 L (34.0-46.0) % Lymphocytes # 0.3 L (1.0-4.8) k/uL Potassium 3.4 L (3.5-5.1) mmol/L Chloride 110 H (98-107) mmol/L BUN 19 H (7-17) mg/dL Glucose 188 H (74-99) mg/dL POC Glucose (mg/dL) 177 H (75-99) mg/dL Urine Protein (Negative) Urine Glucose (UA) (Negative) Urine Blood (Negative) Ur Leukocyte Esterase (Negative) Urine WBC (0-5) /hpf Urine Bacteria (None) /hpf Urine Mucus (None) /hpf 05/11/19 Range/Units 11:50 RBC (3.80-5.40) m/uL Hgb (11.4-16.0) gm/dL Hct (34.0-46.0) % Lymphocytes # (1.0-4.8) k/uL Potassium (3.5-5.1) mmol/L Chloride (98-107) mmol/L BUN (7-17) mg/dL Glucose (74-99) mg/dL POC Glucose (mg/dL) 138 H (75-99) mg/dL Urine Protein (Negative) Urine Glucose (UA) (Negative) Urine Blood (Negative) Ur Leukocyte Esterase (Negative) Urine WBC (0-5) /hpf Urine Bacteria (None) /hpf Urine Mucus (None) /hpf Microbiology - Last 24 Hours (Table) 05/07/19 12:50 Urine Culture - Final Urine,Voided Escherichia coli Providencia stuartii Morganella morganii Pseudomonas aeruginosa 05/10/19 12:55 Urine Culture - Preliminary Urine,Catheterized Assessment and Plan Plan: -Acute renal failure improved with IV fluids patient is presently volume overloaded IV fluids will be day discontinued patient may have mild diastolic dysfunction now in acute exacerbation patient will be given a dose of Lasix -Leukocytosis mostly reactive believe which improved patient urine cultures are positive for multiple bacteria as mentioned above, patient will remain on antibiotics with cefepime this appears to be conizations in the Ferrer catheter Ferrer catheter was replaced. -Severe dehydration improved with IV fluids Hypovolemic hyponatremia resolved at this time -Mildly elevated troponin on admission secondary to renal failure no evidence of acute myocardial infarction [place]-recent hip surgery for which patient is on Lovenox -Metabolic encephalopathy from dehydration improved -Lactic is doses secondary to intravascular depletion which resolved -Hypothyroidism -Gastroesophageal reflux disease
[2019-05-11 17:07] LABS: Glucose,Whole Blood 157 mg/dL (75-99)
--- NOTE | 2019-05-11 18:15 | PN ---
PROGRESS NOTE DATE OF SERVICE: 05/11/2019. REASON FOR FOLLOWUP: Urinary tract infection. INTERVAL HISTORY: The patient is afebrile. She is more awake and alert today. She is breathing comfortably. No chest pain or any cough. No abdominal pain or any diarrhea reported. PHYSICAL EXAMINATION: Blood pressure 156/67 with a pulse of 90. Temperature 97.9. She is 93% on 2 L nasal cannula. General description is an elderly female lying in bed in no distress. Respiratory system: Unlabored breathing. Clear to auscultation anteriorly. Heart S1, S2. Regular rate and rhythm. Abdomen soft, no tenderness. LABS: Hemoglobin 8.8, white count of 8.2, BUN of 19, creatinine 0.95. Repeat urine is currently pending. DIAGNOSTIC IMPRESSION AND PLAN: The patient with a positive urine culture with multiple pathogen, question of possible Ferrer colonization versus a urinary tract infection. Repeat urine is currently pending. To keep the patient on cefepime while waiting for the repeat culture to finalize. Continue supportive care. MMODL / IJN: [id number] /
[2019-05-11 20:22] LABS: Glucose,Whole Blood 177 mg/dL (75-99)
[2019-05-12 07:05] LABS: Glucose,Whole Blood 158 mg/dL (75-99)
[2019-05-12] MEDS: METOPROLOL TARTRATE 12.5 MG TAB PO SCH (07:29)
[2019-05-12] MEDS: amLODIPine 10 MG TAB PO SCH (07:29)
[2019-05-12] MEDS: PANTOPRAZOLE 40 MG/10 ML VIAL IV SCH ×2 (07:29→21:16)
[2019-05-12] MEDS: CEFEPIME 2 GM in SODIUM CHLORIDE 0.9% 100 ML IVPB SCH ×2 (07:29→21:11)
[2019-05-12] MEDS: INSULIN ASPART (NovoLOG) 100 UNIT/ML VIAL SQ SCH ×4 (07:30→21:21)
[2019-05-12 08:53] LABS: Calcium 9.3 mg/dL (8.4-10.2); Potassium 3.2 mmol/L (3.5-5.1)
[2019-05-12] MEDS ORDERED: Potassium Replacement Protocol 1 EACH MISC MISCELLANE PRN (09:04)
[2019-05-12] MEDS: POTASSIUM CHLORIDE ER 20 MEQ TAB.ER PO SCH ×2 (09:20→11:02)
[2019-05-12 12:02] LABS: Glucose,Whole Blood 182 mg/dL (75-99)
--- NOTE | 2019-05-12 13:18 | P.PN ---
Subjective 78-year-old admitted for possibly of upper GI bleed although patient is not having any GI bleed here. patient doesn't have any diarrhea today. Patient is being treated for acute renal failure. Patient will be continued on IV fluids. Patient remains lethargic Ferrer catheter was replaced. Leukocytosis improved. 05/09/2019 Patient is sitting up in bed sleeping but easily arousable to loud voice. Patient is lethargic and nods in and out of a sleep within seconds of talking with her. Patient had a urine culture that shows escherichia coli, providencia stuartii. Patient was placed on IV rocephin. Today's creatinine is 1.56 and is being monitored closely. guarded prognosis. 05/10/2019 Patient is sitting up in bed and is a little more awake today but still lethargic at times. Infectious disease was consulted. Repeat urinalysis with urine culture was ordered and is currently pending. Spoke to the nurse and she stated urine was sent and awaiting results. Infectious disease recommendations changed IV antibiotic therapy to cefepime and is following closely. Current creatinine is 1.03. Will continue to monitor closely. Guarded prognosis. 05/11/2019 Patient urine cultures are positive for multiple bacteria including E. coli, Providentia, Morganella, Pseudomonas aeruginosa, patient is presently on cefe pime this appears to be secondary to Ferrer catheter that Ferrer catheter was replaced and patient has a new Ferrer catheter repeat urine cultures are being obtained plan is to continue the antibiotic if the cultures are remains negative repeat one sample Monday patient will not require any antibiotics. Patient chest x-ray showing bilateral pleural effusions IV fluids were dyspnea patient will be given a dose of Lasix my suspicion is low for pneumonia. I do not believe patient is septic at this time.. 05/12/2019 Patient had multiple episodes of diarrhea last night, patient a couple episodes today morning will obtain C. diff testing. Patient diarrhea secondary to antibiotics. Repeat urine cultures showed gram-negative bacilli but they're less than 100,000 and the patient positive urine cultures are secondary to Ferrer catheter most probably. If she can use to have diarrhea and medics were discontinued. Constitutional: Denied any fatigue denied any fever. Cardio vascular: denied any chest pain, palpitations Gastrointestinal denied any nausea vomiting Pulmonary: Denied any shortness of breath cough Neurologic denied any new focal deficits All inpatient medications were reviewed and appropriate changes in these medications as dictated in the interval history and assessment and plan. Objective - Vital Signs Vital signs: Vital Signs Temp 97.8 F 05/12/19 06:04 Pulse 52 L 05/12/19 06:04 Resp 18 05/12/19 06:04 BP 160/66 05/12/19 06:04 Pulse Ox 94 L 05/12/19 06:04 Intake & Output 05/11/19 05/12/19 05/12/19 18:59 06:59 18:59 Intake Total 200 200 Output Total 2800 900 900 Balance -2600 900 -700 Weight 83 kg Intake: Oral 200 200 Output: Urine 2800 900 900 Other: Voiding Method Indwelling Catheter Indwelling Catheter Indwelling Catheter # Bowel Movements 1 2 - Exam PHYSICAL EXAMINATION: GENERAL: The patient is alert and oriented x2-3, not lethargic looks much better today compared to admission awake talking with baseline function and is extremely poor and bedbound HEENT: Pupils are round and equally reacting to light. EOMI. No scleral icterus. No conjunctival pallor. Normocephalic, atraumatic. No pharyngeal erythema. No thyromegaly. CARDIOVASCULAR: S1 and S2 present. No murmurs, rubs, or gallops. PULMONARY: Chest is clear to auscultation, no wheezing or crackles. ABDOMEN: Soft, nontender, nondistended, normoactive bowel sounds. No palpable organomegaly. MUSCULOSKELETAL: No joint swelling or deformity. EXTREMITIES: No cyanosis, clubbing, or pedal edema. NEUROLOGICAL: No new focal neurological deficits but does have generalized weakness and bedbound SKIN: No rashes. - Labs CBC & Chem 7: 05/11/19 07:54 05/12/19 12:48 Labs: Abnormal Lab Results - Last 24 Hours (Table) 05/11/19 05/11/19 05/12/19 Range/Units 16:50 20:19 06:57 Potassium (3.5-5.1) mmol/L Glucose (74-99) mg/dL POC Glucose (mg/dL) 157 H 177 H 158 H (75-99) mg/dL 05/12/19 05/12/19 Range/Units 07:10 12:00 Potassium 3.2 L (3.5-5.1) mmol/L Glucose 155 H (74-99) mg/dL POC Glucose (mg/dL) 182 H (75-99) mg/dL Microbiology - Last 24 Hours (Table) 05/10/19 12:55 Urine Culture - Preliminary Urine,Catheterized Gram Neg Bacilli Assessment and Plan Plan: -Acute renal failure improved with IV fluids patient is presently volume overloaded IV fluids will be day discontinued patient may have mild diastolic dysfunction now in acute exacerbation patient will be given a dose of Lasix -Leukocytosis mostly reactive believe which improved patient urine cultures are positive for multiple bacteria as mentioned above, patient will remain on antibiotics with cefepime this appears to be conizations in the Ferrer catheter Ferrer catheter was replaced. -Diarrhea most probably secondary to antibiotics, will rule out C. diff colitis -Severe dehydration improved with IV fluids, IV fluids were discontinued because of pulmonary edema Hypovolemic hyponatremia resolved at this time -Mildly elevated troponin on admission secondary to renal failure no evidence of acute myocardial infarction [place]-recent hip surgery for which patient is on Lovenox -Metabolic encephalopathy from dehydration improved -Lactic is doses secondary to intravascular depletion which resolved -Hypothyroidism -Gastroesophageal reflux disease
[2019-05-12] MEDS ORDERED: POTASSIUM CHLORIDE ER 20 MEQ TAB.ER PO ONE (14:00)
[2019-05-12 16:46] LABS: Glucose,Whole Blood 148 mg/dL (75-99)
[2019-05-12 20:26] LABS: Glucose,Whole Blood 192 mg/dL (75-99)
--- NOTE | 2019-05-12 20:50 | PN ---
PROGRESS NOTE DATE OF SERVICE: 05/12/2019. REASON FOR FOLLOWUP: Urinary tract infection. INTERVAL HISTORY: The patient is currently afebrile. The patient is breathing more comfortably. The patient denies having any chest pain or shortness of breath. No nausea, no vomiting. No abdominal pain. No diarrhea. PHYSICAL EXAMINATION: Blood pressure 150/67 with a pulse of 71, temperature 98.9. She is 95% on room air. General description is an elderly female, lying in bed in no distress. Respiratory system unlabored breathing with decreased breath sounds at the bases. HEART: S1, S2. Regular rate and rhythm. Abdomen soft. No tenderness. LABS: BUN of 16, creatinine 0.96. Repeat urine showing a gram-negative bacilli. DIAGNOSTIC IMPRESSION AND PLAN: Patient with multiple pathogen in her urine cultures with a question of possible colonization versus contaminant. The patient's repeat urine culture after change of Ferrer catheter showing gram-negative. We will wait for the ID of this pathogen. Continue cefepime. Continue supportive care. MMODL / IJN: [id number] /
[2019-05-13] MEDS: ONDANSETRON 4 MG/2 ML VIAL IVP PRN (05:28)
[2019-05-13 07:24] LABS: Glucose,Whole Blood 158 mg/dL (75-99)
[2019-05-13] MEDS: INSULIN ASPART (NovoLOG) 100 UNIT/ML VIAL SQ SCH ×2 (07:44→12:53)
[2019-05-13] MEDS: METOPROLOL TARTRATE 12.5 MG TAB PO SCH (07:47)
[2019-05-13] MEDS: amLODIPine 10 MG TAB PO SCH (07:47)
[2019-05-13] MEDS: PANTOPRAZOLE 40 MG/10 ML VIAL IV SCH (07:48)
[2019-05-13] MEDS: CEFEPIME 2 GM in SODIUM CHLORIDE 0.9% 100 ML IVPB SCH (07:48)
[2019-05-13 11:20] LABS: Calcium 9.2 mg/dL (8.4-10.2); Potassium 3.7 mmol/L (3.5-5.1)
--- NOTE | 2019-05-13 12:39 | P.DS ---
Providers Date of admission: 05/07/19 13:49 Attending physician: Arely Mills Consults: 05/10/19 09:57 Consult Physician Stat Consulting Provider: Lito Olmos Reason/Comments: UTI/chronic edwards/abx Do you want consulting provider notified?: Yes Primary care physician: [facility] Course: 78-year-old admitted for possibly of upper GI bleed although patient is not having any GI bleed here. patient doesn't have any diarrhea today. Patient is being treated for acute renal failure. Patient will be continued on IV fluids. Patient remains lethargic Edwards catheter was replaced. Leukocytosis improved. 05/09/2019 Patient is sitting up in bed sleeping but easily arousable to loud voice. Patient is lethargic and nods in and out of a sleep within seconds of talking with her. Patient had a urine culture that shows escherichia coli, providencia stuartii. Patient was placed on IV rocephin. Today's creatinine is 1.56 and is being monitored closely. guarded prognosis. 05/10/2019 Patient is sitting up in bed and is a little more awake today but still lethargic at times. Infectious disease was consulted. Repeat urinalysis with urine culture was ordered and is currently pending. Spoke to the nurse and she stated urine was sent and awaiting results. Infectious disease recommendations changed IV antibiotic therapy to cefepime and is following closely. Current creatinine is 1.03. Will continue to monitor closely. Guarded prognosis. 05/11/2019 Patient urine cultures are positive for multiple bacteria including E. coli, Providentia, Morganella, Pseudomonas aeruginosa, patient is presently on cefepime this appears to be secondary to Edwards catheter that Edwards catheter was replaced and patient has a new Edwards catheter repeat urine cultures are being obtained plan is to continue the antibiotic if the cultures are remains negative repeat one sample Monday patient will not require any antibiotics. Patient chest x-ray showing bilateral pleural effusions IV fluids were dyspnea patient will be given a dose of Lasix my suspicion is low for pneumonia. I do not believe patient is septic at this time.. 05/12/2019 Patient had multiple episodes of diarrhea last night, patient a couple episodes today morning will obtain C. diff testing. Patient diarrhea secondary to antibiotics. Repeat urine cultures showed gram-negative bacilli but they're l ess than 100,000 and the patient positive urine cultures are secondary to Edwards catheter most probably. If she can use to have diarrhea. 05/13/2019 Patient's repeat urine cultures after changing the Edwards catheter showed Pseudomonas but less than 100,000 colonies because of which are infectious disease not recommending any more antibiotics and medics were discontinued and patient will be discharged today patient does have diarrhea this is secondary to antibiotic C. diff is negative. Her diarrhea is expected to get better with the discretion of antibiotics anyways we'll give Lomotil on as-needed basis Diarrhea. Patient will be discharged to subacute rehabilitation. PHYSICAL EXAMINATION: GENERAL: The patient is alert and oriented x2-3, which is her baseline HEENT: Pupils are round and equally reacting to light. EOMI. No scleral icterus. No conjunctival pallor. Normocephalic, atraumatic. No pharyngeal erythema. No thyromegaly. CARDIOVASCULAR: S1 and S2 present. No murmurs, rubs, or gallops. PULMONARY: Chest is clear to auscultation, no wheezing or crackles. ABDOMEN: Soft, nontender, nondistended, normoactive bowel sounds. No palpable organomegaly. MUSCULOSKELETAL: No joint swelling or deformity. EXTREMITIES: No cyanosis, clubbing, or pedal edema. NEUROLOGICAL: No new focal neurological deficits but does have generalized weakness and bedbound SKIN: No rashes. Assessment and Plan Plan: -Acute renal failure improved with IV fluids due to prerenal azotemia -Leukocytosis mostly reactive believe which improved patient urine cultures are positive for multiple bacteria as mentioned above, patient antibiotics as mentioned above in after changing the Edwards catheter did show Pseudomonas but the not high enough colonies to treat like UTI -Diarrhea most probably secondary to antibiotics, ruled out C. diff colitis -Severe dehydration improved with IV fluids, improved now Hypovolemic hyponatremia resolved at this time -Mildly elevated troponin on admission secondary to renal failure no evidence of acute myocardial infarction -recent hip surgery for which patient is on Lovenox, probably this can be discontinued after completion of 4 weeks of therapy total since surgery -Metabolic encephalopathy from dehydration improved -Lactic is doses secondary to intravascular depletion which resolved -Hypothyroidism -Gastroesophageal reflux disease Patient Condition at Discharge: Fair Plan - Discharge Summary New Discharge Prescriptions: New Loperamide [Imodium] 2 mg PO TID PRN #20 capsule PRN Reason: Diarrhea Continue glipiZIDE [Glucotrol] 5 mg PO AC-BID Acetaminophen Tab [Tylenol] 500 mg PO Q6H PRN PRN Reason: Pain Omeprazole [PriLOSEC] 20 mg PO AC-BRKFST Sennosides-Docusate Sodium [Senokot-S] 2 tab PO HS Fenofibrate Nanocrystallized [Tricor] 145 mg PO HS Allopurinol [Zyloprim] 100 mg PO BID Nystatin 100,000 Unit/gm Powd [Mycostatin Powder] 1 applic TOPICAL DAILY PRN PRN Reason: UNDER BREAST Enoxaparin Sodium [Lovenox] 30 mg SQ DAILY #28 syringe amLODIPine [Norvasc] 10 mg PO DAILY tab Metoprolol Tartrate [Lopressor] 12.5 mg PO DAILY #90 tab Changed Losartan [Cozaar] 50 mg PO DAILY #0 Discontinued Hydrocodone/Acetaminophen [[place] 5-325] 1 tab PO Q4H PRN PRN Reason: Pain Discharge Medication List glipiZIDE [Glucotrol] 5 mg PO AC-BID 05/13/16 [History] Acetaminophen Tab [Tylenol] 500 mg PO Q6H PRN 06/22/16 [History] Omeprazole [PriLOSEC] 20 mg PO AC-BRKFST 04/03/17 [History] Allopurinol [Zyloprim] 100 mg PO BID 04/22/19 [History] Fenofibrate Nanocrystallized [Tricor] 145 mg PO HS 04/22/19 [History] Nystatin 100,000 Unit/gm Powd [Mycostatin Powder] 1 applic TOPICAL DAILY PRN 04/22/19 [History] Sennosides-Docusate Sodium [Senokot-S] 2 tab PO HS 04/22/19 [History] Enoxaparin Sodium [Lovenox] 30 mg SQ DAILY #28 syringe 04/26/19 [Rx] Metoprolol Tartrate [Lopressor] 12.5 mg PO DAILY #90 tab 04/26/19 [Rx] amLODIPine [Norvasc] 10 mg PO DAILY tab 04/26/19 [Rx] Losartan [Cozaar] 50 mg PO DAILY #0 05/11/19 [Rx] Loperamide [Imodium] 2 mg PO TID PRN #20 capsule 05/13/19 [Rx] Follow up Appointment(s)/Referral(s): Edmar Teresa DO [Primary Care Provider] - 3 Days Discharge Disposition: TRANSFER TO SNF/ECF
[2019-05-13 12:49] LABS: Glucose,Whole Blood 187 mg/dL (75-99)
--- NOTE | 2019-05-13 12:57 | PN ---
PROGRESS NOTE DATE OF SERVICE: 05/13/2019 REASON FOR FOLLOWUP: Urinary tract infection. INTERVAL HISTORY: The patient is currently afebrile. The patient is breathing comfortably. Denies having any chest pain or cough. No abdominal pain. No diarrhea. PHYSICAL EXAMINATION: On examination, blood pressure is 161/71, pulse of 83, temperature 98.2. She is 95% on room air. General description is an elderly female, lying in bed in no distress. RESPIRATORY SYSTEM: Unlabored breathing, clear to auscultation anteriorly. HEART: S1, S2. Regular rate and rhythm. ABDOMEN: Soft, no tenderness. LABS: Creatinine 0.93. Repeat urine show Pseudomonas with low colony count. DIAGNOSTIC IMPRESSION AND PLAN: Patient with urinary tract infection. Urine did grow multiple pathogens. However that was from the Ferrer catheter has been changed with repeat culture showing very low colony count, possible colonization. Patient with no fever or white count, recommend no further antibiotic on discharge. Plan of care discussed with the discharging physician. MMODL / IJN: [id number] /
[2019-05-13 13:30] VITALS: BP 152/87; PULSE 84; RESP 20; TEMP 98.9
== END 2019-05-13 16:15 | DRG 682 ==
LOC: EC 10:21 → 3SCARD 13:49 → 4MS4W 05-08 11:11
PROVIDERS: ADMIT Internal Medicine; ATTEND Internal Medicine
DX: N17.9 Acute kidney failure, unspecified (principal); G92 Toxic encephalopathy; D62 Acute posthemorrhagic anemia; E87.1 Hypo-osmolality and hyponatremia; E87.2 Acidosis; K52.1 Toxic gastroenteritis and colitis; E86.0 Dehydration; E11.9 Type 2 diabetes mellitus without complications; K21.9 Gastro-esophageal reflux disease without esophagitis; N18.2 Chronic kidney disease, stage 2 (mild); E86.1 Hypovolemia; E03.9 Hypothyroidism, unspecified; E11.22 Type 2 diabetes mellitus with diabetic chronic kidney disease; T36.95XA Adverse effect of unspecified systemic antibiotic, initial encounter; H91.90 Unspecified hearing loss, unspecified ear; I12.9 Hypertensive chronic kidney disease with stage 1 through stage 4 chronic kidney disease, or unspecified chronic kidney disease; D25.9 Leiomyoma of uterus, unspecified; M62.81 Muscle weakness (generalized); Z79.01 Long term (current) use of anticoagulants; Z79.84 Long term (current) use of oral hypoglycemic drugs; Z79.899 Other long term (current) drug therapy; Z90.49 Acquired absence of other specified parts of digestive tract; Z90.710 Acquired absence of both cervix and uterus
CPT/HCPCS: 36415; 71046; 80048; 80053; 81001; 83605; 83690; 83735; 84132; 84484; 85025; 85027; 85610; 85730; 87077; 87086; 87186; 87324; 93005; 96361; 96374; 99284

== ENCOUNTER 2019-11-19 11:30 | Day surgery (SDC) | payer MEDICARE, OTHER ==
[2019-11-19 12:15] VITALS: RESP 16; TEMP 97.6
[2019-11-19 12:28] LABS: Glucose,Whole Blood 100 mg/dL (75-99)
[2019-11-19] MEDS ORDERED: PROPOFOL 10 MG/ML 20 ML VIAL IV ONE (13:37)
[2019-11-19] MEDS ORDERED: LIDOCAINE 1% INJ 10MG/ML (20 ML MDV) ONE (13:37)
--- NOTE | 2019-11-19 14:07 | P.PCN ---
Date of Procedure: 11/19/19 Description of Procedure: BRIEF HISTORY: Patient is a 79-year-old female presenting for evaluation of nausea with esophagogastroduodenoscopy. PROCEDURE PERFORMED: Esophagogastroduodenoscopy with biopsy. PREOPERATIVE DIAGNOSIS: Nausea. ESTIMATED BLOOD LOSS: Minimal. IV sedation per anesthesia. PROCEDURE: After informed consent was obtained, the patient was brought into the endoscopy unit. IV sedation was administered by Anesthesia under continuous monitoring. Initially the Olympus GIF-190 video endoscope was inserted into the mouth. Esophagus intubated without any difficulty. It was gradually advanced into the stomach and duodenum and carefully examined. The bulb and the second part of the duodenum appeared normal, with biopsies taken to rule out celiac sprue. The scope at this time was withdrawn to the stomach, adequately insufflated with air, and upon careful examination, mucosa of the antrum, body, cardia and the fundus appeared normal except for some mild scattered erythema in the antrum and body suggestive of mild gastritis with biopsies taken, as well as some deformity of the antrum likely from a prior ulcers. The scope was then withdrawn into the esophagus. The GE junction was located at 39 cm from the incisors, with a 2 cm hiatal hernia noted. The esophagus appeared normal. There were no erosions or ulcerations seen and the patient tolerated the procedure well. IMPRESSION: 1. Mild gastritis antrum body, biopsied. 2. Antral deformity likely from prior peptic ulcer disease which is healed. 3. Small hiatal hernia. 4. No pathology to explain nausea on upper endoscopy. RECOMMENDATIONS: The findings of this examination were discussed with the patient. Okay to resume diet. Dietary modifications which made in treatment of nausea includes low fat low fiber diet. Patient may also benefit from a trial of H2 antagonist therapy for possible GERD contributing to symptoms. Okay to resume medications. Await pathology from biopsies.
[2019-11-19 14:28] VITALS: BP 141/70; PULSE 73
== END 2019-11-19 14:30 ==
LOC: ORWHC2ENDO 11:30
PROVIDERS: ATTEND Internal Medicine
DX: K26.9 Duodenal ulcer, unspecified as acute or chronic, without hemorrhage or perforation (principal); K29.80 Duodenitis without bleeding; K44.9 Diaphragmatic hernia without obstruction or gangrene; K29.50 Unspecified chronic gastritis without bleeding; M95.8 Other specified acquired deformities of musculoskeletal system; Z90.710 Acquired absence of both cervix and uterus; Z96.642 Presence of left artificial hip joint; Z87.891 Personal history of nicotine dependence; I10 Essential (primary) hypertension; E11.9 Type 2 diabetes mellitus without complications; E07.9 Disorder of thyroid, unspecified; N28.9 Disorder of kidney and ureter, unspecified; K21.9 Gastro-esophageal reflux disease without esophagitis; Z79.899 Other long term (current) drug therapy; Z88.6 Allergy status to analgesic agent
CPT/HCPCS: 88305; 43239; J2001; J2704

== ENCOUNTER 2020-01-06 12:13 | Emergency (ER) | payer MEDICARE, OTHER ==
[2020-01-06 12:35] VITALS: RESP 16; TEMP 100.5
--- NOTE | 2020-01-06 13:00 | ED ---
General Adult HPI - General Chief complaint: Shortness of Breath Stated complaint: High Heart Rate Time Seen by Provider: 01/06/20 12:14 Source: EMS Mode of arrival: EMS Limitations: no limitations - History of Present Illness Initial comments: Dictation was produced using clipkit dictation software. please excuse any grammatical, word or spelling errors. This patient was cared for during a federal and state declared state of emergency secondary to Covid 19 Chief Complaint: 79-year-old feel past medical history diabetes, debility pr esents with lethargy and tachycardia History of Present Illness: 79-year-old female she was recently diagnosed with Covid 19. Patient was brought in by EMS. She is currently a resident at the [facility]. EMS was contacted for transfer to emergency department for the reason of lethargy, difficulty in breathing. Upon EMS evaluation patient was found to be tachycardic. EKG showed findings concerning with atrial fibrillation with rapid ventricular rate. Patient spontaneous converted prior to arrival in the emergency department. Patient reports that she feels well at this time. Patient has a history of dementia. She has no specific complaints. Patient tested positive coronavirus 3 days ago. Currently there has been an outbreak of coronavirus at the [facility]. History limited second to hard of hearing. The ROS documented in this emergency department record has been reviewed and confirmed by me. Those systems with pertinent positive or negative responses have been documented in the HPI. All other systems are other negative and/or noncontributory. PHYSICAL EXAM: General Impression: Alert and oriented x3, not in acute distress HEENT: Normocephalic atraumatic, extra-ocular movements intact, pupils equal and reactive to light bilaterally, mucous membranes moist. Cardiovascular: Heart regular rate and rhythm Chest: Able to complete full sentences, no retractions, no tachypnea Abdomen: Bowel sounds present, abdomen soft, non-tender, non-distended, no organomegaly Musculoskeletal: Pulses present and equal in all extremities, no peripheral edema Motor: no focal deficits noted Neurological: CN II-XII grossly intact, no focal motor or sensory deficits noted Skin: Intact with no visualized rashes Psych: Normal affect and mood ED course: 79-year-old female difficulty in breathing. While patient had cardiac rhythm concerning for atrial fibrillation with rapid ventricular rate. Patient converted spontaneously. At this time she appears stable. Patient is not on any antiplatelet therapy at this time. She does take metoprolol daily. Laboratory evaluation obtained. CBC, coag panel unremarkable. D-dimer is elevated likely secondary to Covid infection. Metabolic panel is grossly unremarkable. There is a potassium of 5.3 with slight hemolysis. This likely is normal. Patient has elevated inflammatory markers. Clinical presentation consistent with rotavirus. Patient given 35 mg of oral metoprolol. She is observed in emergency department. Patient's is stable medical condition. Considering patient not hypoxic or showing any signs of labored breathing. Patient appears clinically stable at this time. Patient be discharge back to [facility]. EKG interpretation: Ventricular rate 94, normal sinus rhythm,. Interval 160, QRS 92, QTc 387. No AL prolongation, no QTC prolongation, no ST or T-wave changes noted. EKG compared to 05/07/2019 showing no changes. Overall, this EKG is unremarkable - Related Data Home Medications Medication Instructions Recorded Confirmed Acetaminophen Tab [Tylenol] 500 mg PO Q6H PRN 06/22/16 01/06/20 Allopurinol [Zyloprim] 100 mg PO BID 04/22/19 01/06/20 Fenofibrate,Micronized 134 mg PO HS@199901/06/20 01/06/20 [Fenofibrate] Metoprolol Tartrate [Lopressor] 12.5 mg PO DAILY 01/06/20 01/06/20 OLANZapine ODT [ZyPREXA ZYDIS] 5 mg PO HS 01/06/20 01/06/20 Previous Rx's Medication Instructions Recorded amLODIPine [Norvasc] 10 mg PO DAILY tab 04/26/19 Losartan [Cozaar] 50 mg PO DAILY #0 05/11/19 Allergies Allergy/AdvReac Type Severity Reaction Status Date / Time ibuprofen [From Motrin IB] Allergy Unknown Verified 01/06/20 12:42 Review of Systems ROS Statement: Those systems with pertinent positive or pertinent negative responses have been documented in the HPI. ROS Other: All systems not noted in ROS Statement are negative. Past Medical History Past Medical History: Diabetes Mellitus, GERD/Reflux, Hearing Disorder / Deafness, Hypertension, Osteoarthritis (OA), Renal Disease, Thyroid Disorder Additional Past Medical History / Comment(s): acute posthemorrhagic anemia,abnormal uterine and vaginal bleeding, Leiomyoma of uterus, tachycardia, Generalized muscle weakness, Chronic kidney disease stage 2 (mild), History of Any Multi-Drug Resistant Organisms: None Reported Past Surgical History: Appendectomy, Hysterectomy Additional Past Surgical History / Comment(s): fistula L upper arm Past Anesthesia/Blood Transfusion Reactions: No Reported Reaction Past Psychological History: No Psychological Hx Reported Smoking Status: Former smoker - Past Family History Mother History Unknown: Yes Father History Unknown: Yes General Exam Limitations: no limitations Course Vital Signs 01/06/20 01/06/20 12:14 12:50 Temperature 100.5 F H Pulse Rate 97 Respiratory 16 16 Rate Blood Pressure 145/90 O2 Sat by Pulse 97 Oximetry Medical Decision Making - Lab Data Result diagrams: 01/06/20 12:44 01/06/20 12:44 Lab Results 01/06/20 01/06/20 01/06/20 Range/Units 12:44 12:44 12:44 WBC 4.0 (3.8-10.6) k/uL RBC 3.74 L (3.80-5.40) m/uL Hgb 11.5 (11.4-16.0) gm/dL Hct 35.6 (34.0-46.0) % MCV 95.3 (80.0-100.0) fL MCH 30.8 (25.0-35.0) pg MCHC 32.4 (31.0-37.0) g/dL RDW 14.2 (11.5-15.5) % Plt Count 233 (150-450) k/uL Neutrophils % 79 % Lymphocytes % 9 % Monocytes % 8 % Eosinophils % 0 % Basophils % 1 % Neutrophils # 3.2 (1.3-7.7) k/uL Lymphocytes # 0.4 L (1.0-4.8) k/uL Monocytes # 0.3 (0-1.0) k/uL Eosinophils # 0.0 (0-0.7) k/uL Basophils # 0.0 (0-0.2) k/uL PT 11.6 (9.0-12.0) sec INR 1.1 (<1.2) APTT 25.9 (22.0-30.0) sec D-Dimer 2.00 H (<0.60) mg/L FEU Sodium 138 (137-145) mmol/L Potassium 5.3 H (3.5-5.1) mmol/L Chloride 106 (98-107) mmol/L Carbon Dioxide 24 (22-30) mmol/L Anion Gap 8 mmol/L BUN 35 H (7-17) mg/dL Creatinine 1.37 H (0.52-1.04) mg/dL Est GFR (CKD-EPI)AfAm 43 (>60 ml/min/1.73 sqM) Est GFR (CKD-EPI)NonAf 37 (>60 ml/min/1.73 sqM) Glucose 122 H (74-99) mg/dL Plasma Lactic Acid Will (0.7-2.0) mmol/L Calcium 10.5 H (8.4-10.2) mg/dL Magnesium 2.1 (1.6-2.3) mg/dL Total Bilirubin 0.7 (0.2-1.3) mg/dL AST 41 H (14-36) U/L ALT 12 (4-34) U/L Alkaline Phosphatase 51 (38-126) U/L Lactate Dehydrogenase 975 H (313-618) U/L C-Reactive Protein 49.4 H (<10.0) mg/L Total Protein 8.2 (6.3-8.2) g/dL Albumin 4.2 (3.5-5.0) g/dL 01/06/20 Range/Units 12:44 WBC (3.8-10.6) k/uL RBC (3.80-5.40) m/uL Hgb (11.4-16.0) gm/dL Hct (34.0-46.0) % MCV (80.0-100.0) fL MCH (25.0-35.0) pg MCHC (31.0-37.0) g/dL RDW (11.5-15.5) % Plt Count (150-450) k/uL Neutrophils % % Lymphocytes % % Monocytes % % Eosinophils % % Basophils % % Neutrophils # (1.3-7.7) k/uL Lymphocytes # (1.0-4.8) k/uL Monocytes # (0-1.0) k/uL Eosinophils # (0-0.7) k/uL Basophils # (0-0.2) k/uL PT (9.0-12.0) sec INR (<1.2) APTT (22.0-30.0) sec D-Dimer (<0.60) mg/L FEU Sodium (137-145) mmol/L Potassium (3.5-5.1) mmol/L Chloride (98-107) mmol/L Carbon Dioxide (22-30) mmol/L Anion Gap mmol/L BUN (7-17) mg/dL Creatinine (0.52-1.04) mg/dL Est GFR (CKD-EPI)AfAm (>60 ml/min/1.73 sqM) Est GFR (CKD-EPI)NonAf (>60 ml/min/1.73 sqM) Glucose (74-99) mg/dL Plasma Lactic Acid Will 1.0 (0.7-2.0) mmol/L Calcium (8.4-10.2) mg/dL Magnesium (1.6-2.3) mg/dL Total Bilirubin (0.2-1.3) mg/dL AST (14-36) U/L ALT (4-34) U/L Alkaline Phosphatase (38-126) U/L Lactate Dehydrogenase (313-618) U/L C-Reactive Protein (<10.0) mg/L Total Protein (6.3-8.2) g/dL Albumin (3.5-5.0) g/dL Disposition Clinical Impression: Viral pneumonia Disposition: HOME SELF-CARE Condition: Fair Instructions (If sedation given, give patient instructions): Acute Cough (ED) Is patient prescribed a controlled substance at d/c from ED?: No Referrals: Edmar Teresa DO [Primary Care Provider] - 1-2 days Time of Disposition: 14:07
[2020-01-06] MEDS ORDERED: METOPROLOL TARTRATE 25 MG TAB PO STA (13:01)
[2020-01-06 13:03] LABS: Basophils % (A) 1 %; Eosinophils % (A) 0 %; HCT 35.6 % (34.0-46.0); HGB 11.5 gm/dL (11.4-16.0); Lymphocytes # (A) 0.4 k/uL (1.0-4.8); Lymphocytes % (A) 9 %; MCH 30.8 pg (25.0-35.0); MCHC 32.4 g/dL (31.0-37.0); MCV 95.3 fL (80.0-100.0); Mean Platelet Volume 7.9; Monocytes # (A) 0.3 k/uL (0-1.0); Monocytes % (A) 8 %; Neutrophils # (A) 3.2 k/uL (1.3-7.7); Neutrophils % (A) 79 %; Platelet Count 233 k/uL (150-450); RBC 3.74 m/uL (3.80-5.40); RDW 14.2 % (11.5-15.5)
[2020-01-06 13:22] LABS: Albumin 4.2 g/dL (3.5-5.0); C Reactive Protein 49.4 mg/L (<10.0); Calcium 10.5 mg/dL (8.4-10.2); INR 1.1 (<1.2); Partial Thromboplastin Time 25.9 sec (22.0-30.0); Prothrombin Time 11.6 sec (9.0-12.0); Total Bilirubin 0.7 mg/dL (0.2-1.3); Total Protein 8.2 g/dL (6.3-8.2)
--- NOTE | 2020-01-06 13:23 | XR ---
EXAMINATION TYPE: XR chest 1V portable DATE OF EXAM: 01/06/2020 COMPARISON: 05/11/2019 INDICATION: Covid 19 pneumonia suspected TECHNIQUE: Single frontal view of the chest is obtained. FINDINGS: The heart size is normal. The pulmonary vasculature is normal. No suspicious infiltrates are evident. Some chronic scarring appears to be at the left base. IMPRESSION: 1. No suspicious acute pulmonary process. 2. Chronic linear opacity left lung base may be some scarring present previously
[2020-01-06 13:25] LABS: Potassium 5.3 mmol/L (3.5-5.1)
[2020-01-06 13:26] LABS: Magnesium 2.1 mg/dL (1.6-2.3)
[2020-01-06 15:11] VITALS: BP 132/76; PULSE 86
[2020-01-06 20:15] LABS: Ferritin 567.7 ng/mL (10.0-291.0)
== END 2020-01-06 15:10 | disposition home or self-care (01) ==
LOC: EC 12:13
DX: U07.1 COVID-19 (principal); J12.89 Other viral pneumonia; E11.22 Type 2 diabetes mellitus with diabetic chronic kidney disease; I12.9 Hypertensive chronic kidney disease with stage 1 through stage 4 chronic kidney disease, or unspecified chronic kidney disease; N18.2 Chronic kidney disease, stage 2 (mild); F03.90 Unspecified dementia, unspecified severity, without behavioral disturbance, psychotic disturbance, mood disturbance, and anxiety; H91.90 Unspecified hearing loss, unspecified ear; Z79.899 Other long term (current) drug therapy; Z88.6 Allergy status to analgesic agent; Z87.891 Personal history of nicotine dependence
CPT/HCPCS: 36415; 71045; 80053; 82728; 83605; 83615; 83735; 84145; 85025; 85379; 85610; 85730; 86140; 87040; 93005; 99285